=== PATIENT | male | born 1990 | race Caucasian/White ===

== ENCOUNTER 2018-05-16 07:31 | Emergency (ER) | payer SELFPAY ==
[~2018-05-16] VITALS: Ht 180.3 cm; Wt 79.5 kg
[2018-05-16 09:36] LABS: AMPHET/METH SCREEN,URINE NEGATIVE (NEGATIVE); BARBITURATE SCREEN, URINE NEGATIVE (NEGATIVE); BENZODIAZEPINES SCREEN,URINE NEGATIVE (NEGATIVE); CANNABINOID SCREEN,URINE POSITIVE (NEGATIVE); COCAINE SCREEN,URINE NEGATIVE (NEGATIVE); METHADONE SCREEN, URINE NEGATIVE (NEGATIVE); OPIATE SCREEN,URINE NEGATIVE (NEGATIVE)
[2018-05-16 09:41] LABS: PHENCYCLIDINE SCREEN,URINE NEGATIVE (NEGATIVE)
[2018-05-16 10:11] VITALS: BP 123/72
== END 2018-05-16 10:22 | disposition home or self-care (01) ==
LOC: EMS 07:32
DX: F29 Unspecified psychosis not due to a substance or known physiological condition (principal); F12.90 Cannabis use, unspecified, uncomplicated; F17.210 Nicotine dependence, cigarettes, uncomplicated; Z88.0 Allergy status to penicillin; Z88.8 Allergy status to other drugs, medicaments and biological substances
CPT/HCPCS: 99285; 99406

== ENCOUNTER 2019-01-15 22:24 | Inpatient (IN) | payer MEDICAID ==
[~2019-01-15] VITALS: Ht 177.8 cm; Wt 81.2 kg
[2019-01-16 00:57] LABS: BASOPHILS % (AUTO) 0.7 % (0.0-2.0); EOSINOPHILS % (AUTO) 1.1 % (1.0-6.0); HEMATOCRIT 44.1 % (41-53); HEMOGLOBIN 14.6 g/dL (13.5-17.5); LYMPHOCYTES # (AUTO) 2.4 K/uL (1.0-4.8); LYMPHOCYTES % (AUTO) 35.2 % (22.0-44.0); MEAN CORPUSCULAR HEMOGLOBIN 28.8 pg (26.0-34.0); MEAN CORPUSCULAR HGB CONC 33.1 G/dL (31.0-37.0); MEAN CORPUSCULAR VOLUME 87 fL (80-100); MONOCYTES # (AUTO) 0.6 K/uL (0.1-1.0); MONOCYTES % (AUTO) 8.1 % (2.0-9.0); NEUTROPHILS # (AUTO) 3.8 K/uL (1.8-7.7); NEUTROPHILS % (AUTO) 54.9 % (40.0-70.0); PLATELET COUNT (AUTO) 281 K/uL (150-450); RED BLOOD CELL COUNT(AUTO) 5.06 MIL/uL (4.50-5.90)
[2019-01-16 00:59] LABS: ANION GAP 11 mmol/L (8-16); CALCIUM, TOTAL 9.3 mg/dL (8.8-10.5); CARBON DIOXIDE 30 mmol/L (22-29); CHLORIDE 104 mmol/L (98-107); GLOMERULAR FILTR. RATE CALC > 60 mL/min (>60); GLUCOSE,RANDOM 92 mg/dL (70-110); POTASSIUM 3.7 mmol/L (3.5-5.1); SODIUM SERUM 145 mmol/L (136-145); UREA NITROGEN, BLOOD 10 mg/dL (7-18)
[2019-01-16 01:04] LABS: ALANINE AMINOTRANSFERASE 21 U/L (12-78); ALBUMIN 3.7 g/dL (3.4-5.0); ALKALINE PHOSPHATASE 87 U/L (46-116); ASPARTATE AMINOTRANSFERASE 21 U/L (15-37); BILIRUBIN,TOTAL 0.8 mg/dL (0.1-1.0); TOTAL PROTEIN, SERUM 7.4 g/dL (6.4-8.2)
[2019-01-16] MEDS ORDERED: LORazepam 2 MG TABLET PO PRN (02:15)
[2019-01-16] MEDS ORDERED: HALOPERIDOL 5 MG TABLET PO PRN (02:15)
[2019-01-16 05:30] VITALS: BP 122/80
[2019-01-16] MEDS ORDERED: BENZOCAINE/MENTHOL LOZENGE MM PRN (07:30)
[2019-01-16] MEDS ORDERED: BACITRACIN 28.4 GM OINTMENT TP PRN (07:30)
[2019-01-16] MEDS ORDERED: MAG HYDROX/AL HYDROX/SIMETH ES 30 ML SUSPENSION UDCUP PO PRN (07:30)
[2019-01-16] MEDS ORDERED: MAGNESIUM HYDROXIDE SUSPENSION 30 ML UDCUP PO PRN (07:30)
[2019-01-16] MEDS ORDERED: IBUPROFEN 600 MG TABLET PO PRN (07:30)
[2019-01-16] MEDS ORDERED: ACETAMINOPHEN 325 MG TABLET PO PRN (07:30)
[2019-01-16] MEDS ORDERED: PETROLATUM,WHITE 28 GM JELLY TP PRN (07:30)
[2019-01-16] MEDS ORDERED: ALBUTEROL SULFATE HFA 90 MCG/PUFF 8 GM INHALER IH PRN (07:30)
[2019-01-16] MEDS ORDERED: LOPERAMIDE HCL 2 MG CAPSULE PO PRN (07:30)
[2019-01-16] MEDS ORDERED: ONDANSETRON HCL 4 MG TABLET PO PRN (07:30)
[2019-01-16] MEDS ORDERED: CloNIDine HCL 0.1 MG TABLET PO PRN (07:30)
[2019-01-16 08:05] VITALS: BP 120/69
[2019-01-16] MEDS: DOCUSATE SODIUM 100 MG CAPSULE PO SCH (10:27)
[2019-01-16] MEDS: OMEPRAZOLE 20 MG CAPSULE PO SCH (10:28)
[2019-01-16] MEDS: OLANZapine 7.5 MG TABLET PO SCH (21:59)
[2019-01-17 06:36] LABS: CHOL/HDL RATIO 3.2 (4.2-7.3)
[2019-01-17 09:28] VITALS: BP 101/56
[2019-01-17] MEDS: CITALOPRAM HYDROBROMIDE 20 MG TABLET PO SCH (09:28)
[2019-01-17] MEDS: DOCUSATE SODIUM 100 MG CAPSULE PO SCH (09:28)
[2019-01-17] MEDS: DIVALPROEX SODIUM 500 MG DR TABLET PO SCH ×2 (09:28→16:14)
[2019-01-17] MEDS: OMEPRAZOLE 20 MG CAPSULE PO SCH (09:28)
[2019-01-17 16:28] VITALS: BP 120/71
[2019-01-17] MEDS: OLANZapine 7.5 MG TABLET PO SCH (20:28)
[2019-01-18 08:05] VITALS: BP 122/54
[2019-01-18] MEDS: CITALOPRAM HYDROBROMIDE 20 MG TABLET PO SCH (08:06)
[2019-01-18] MEDS: DIVALPROEX SODIUM 500 MG DR TABLET PO SCH ×2 (08:06→16:40)
[2019-01-18] MEDS: OMEPRAZOLE 20 MG CAPSULE PO SCH (08:06)
[2019-01-18] MEDS: DOCUSATE SODIUM 100 MG CAPSULE PO SCH (08:06)
[2019-01-18] MEDS ORDERED: ONDANSETRON HCL 4 MG/2 ML VIAL IM PRN (09:00)
[2019-01-18] MEDS: OLANZapine 7.5 MG TABLET PO SCH (20:30)
[2019-01-19 08:40] VITALS: BP 130/60
[2019-01-19] MEDS: CITALOPRAM HYDROBROMIDE 20 MG TABLET PO SCH (09:13)
[2019-01-19] MEDS: DIVALPROEX SODIUM 500 MG DR TABLET PO SCH ×2 (09:13→16:20)
[2019-01-19] MEDS: DOCUSATE SODIUM 100 MG CAPSULE PO SCH (09:13)
[2019-01-19] MEDS: OMEPRAZOLE 20 MG CAPSULE PO SCH (09:13)
[2019-01-19 16:05] VITALS: BP 118/75
[2019-01-19] MEDS: OLANZapine 7.5 MG TABLET PO SCH (20:26)
[2019-01-20 08:05] VITALS: BP 134/73
[2019-01-20] MEDS: CITALOPRAM HYDROBROMIDE 20 MG TABLET PO SCH ×2 (09:00→12:46)
[2019-01-20] MEDS: DOCUSATE SODIUM 100 MG CAPSULE PO SCH (09:00)
[2019-01-20] MEDS: OMEPRAZOLE 20 MG CAPSULE PO SCH ×2 (09:00→12:46)
[2019-01-20] MEDS: DIVALPROEX SODIUM 500 MG DR TABLET PO SCH ×3 (09:00→16:14)
[2019-01-20 17:24] VITALS: BP 121/77
[2019-01-20] MEDS: ZOLPIDEM TARTRATE 10 MG TABLET PO PRN (20:06)
[2019-01-20] MEDS: OLANZapine 7.5 MG TABLET PO SCH (20:06)
[2019-01-21 08:42] VITALS: BP 136/73
[2019-01-21] MEDS: DOCUSATE SODIUM 100 MG CAPSULE PO SCH (09:24)
[2019-01-21] MEDS: OMEPRAZOLE 20 MG CAPSULE PO SCH (09:24)
[2019-01-21] MEDS: CITALOPRAM HYDROBROMIDE 20 MG TABLET PO SCH (09:24)
[2019-01-21] MEDS: DIVALPROEX SODIUM 500 MG DR TABLET PO SCH ×2 (09:24→16:40)
[2019-01-21 16:46] VITALS: BP 130/69
[2019-01-21] MEDS: OLANZapine 7.5 MG TABLET PO SCH (20:55)
[2019-01-22 08:30] VITALS: BP 147/99
[2019-01-22] MEDS: CITALOPRAM HYDROBROMIDE 20 MG TABLET PO SCH (09:48)
[2019-01-22] MEDS: DOCUSATE SODIUM 100 MG CAPSULE PO SCH (09:48)
[2019-01-22] MEDS: OMEPRAZOLE 20 MG CAPSULE PO SCH (09:49)
[2019-01-22] MEDS: DIVALPROEX SODIUM 500 MG DR TABLET PO SCH ×2 (09:49→16:28)
[2019-01-22 16:00] VITALS: BP 129/70
[2019-01-22] MEDS: OLANZapine 7.5 MG TABLET PO SCH (20:29)
[2019-01-23 08:46] VITALS: BP 123/75
[2019-01-23] MEDS: DOCUSATE SODIUM 100 MG CAPSULE PO SCH (09:00)
[2019-01-23] MEDS: DIVALPROEX SODIUM 500 MG DR TABLET PO SCH ×2 (09:20→16:30)
[2019-01-23] MEDS: OMEPRAZOLE 20 MG CAPSULE PO SCH (09:21)
[2019-01-23] MEDS: CITALOPRAM HYDROBROMIDE 20 MG TABLET PO SCH (09:21)
[2019-01-23 20:15] VITALS: BP 125/78
[2019-01-23] MEDS: OLANZapine 7.5 MG TABLET PO SCH (20:21)
[2019-01-24 08:02] VITALS: BP 118/70
[2019-01-24] MEDS: DOCUSATE SODIUM 100 MG CAPSULE PO SCH (09:00)
[2019-01-24] MEDS: OMEPRAZOLE 20 MG CAPSULE PO SCH (09:29)
[2019-01-24] MEDS: DIVALPROEX SODIUM 500 MG DR TABLET PO SCH ×2 (09:29→16:14)
[2019-01-24] MEDS: CITALOPRAM HYDROBROMIDE 20 MG TABLET PO SCH (09:29)
[2019-01-24 16:00] VITALS: BP 122/63
[2019-01-24] MEDS: OLANZapine 7.5 MG TABLET PO SCH (20:08)
[2019-01-25 08:05] VITALS: BP 101/82
[2019-01-25] MEDS: DOCUSATE SODIUM 100 MG CAPSULE PO SCH (09:10)
[2019-01-25] MEDS: OMEPRAZOLE 20 MG CAPSULE PO SCH (09:11)
[2019-01-25] MEDS: CITALOPRAM HYDROBROMIDE 20 MG TABLET PO SCH (09:11)
[2019-01-25] MEDS: DIVALPROEX SODIUM 500 MG DR TABLET PO SCH ×2 (09:11→16:22)
[2019-01-25 16:04] VITALS: BP 111/65
[2019-01-25] MEDS: ZOLPIDEM TARTRATE 10 MG TABLET PO PRN (20:17)
[2019-01-25] MEDS: OLANZapine 7.5 MG TABLET PO SCH (20:19)
[2019-01-26 08:12] VITALS: BP 105/64
[2019-01-26] MEDS: OMEPRAZOLE 20 MG CAPSULE PO SCH (08:25)
[2019-01-26] MEDS: DOCUSATE SODIUM 100 MG CAPSULE PO SCH (08:25)
[2019-01-26] MEDS: DIVALPROEX SODIUM 500 MG DR TABLET PO SCH ×2 (08:25→16:29)
[2019-01-26] MEDS: CITALOPRAM HYDROBROMIDE 20 MG TABLET PO SCH (08:26)
[2019-01-26 16:20] VITALS: BP 114/67
[2019-01-26] MEDS: OLANZapine 7.5 MG TABLET PO SCH (20:26)
[2019-01-27 08:00] VITALS: BP 113/63
[2019-01-27] MEDS: DIVALPROEX SODIUM 500 MG DR TABLET PO SCH ×2 (08:33→16:23)
[2019-01-27] MEDS: DOCUSATE SODIUM 100 MG CAPSULE PO SCH (08:33)
[2019-01-27] MEDS: OMEPRAZOLE 20 MG CAPSULE PO SCH (08:33)
[2019-01-27] MEDS: CITALOPRAM HYDROBROMIDE 20 MG TABLET PO SCH (08:33)
[2019-01-27 10:28] VITALS: BP 114/57
[2019-01-27 16:00] VITALS: BP 113/63
[2019-01-27] MEDS: OLANZapine 7.5 MG TABLET PO SCH (20:23)
[2019-01-28] MEDS: DOCUSATE SODIUM 100 MG CAPSULE PO SCH (09:20)
[2019-01-28] MEDS: DIVALPROEX SODIUM 500 MG DR TABLET PO SCH ×2 (09:20→17:17)
[2019-01-28] MEDS: CITALOPRAM HYDROBROMIDE 20 MG TABLET PO SCH (09:20)
[2019-01-28] MEDS: OMEPRAZOLE 20 MG CAPSULE PO SCH (09:20)
[2019-01-28 16:15] VITALS: BP 111/57
[2019-01-28] MEDS: OLANZapine 7.5 MG TABLET PO SCH (20:09)
[2019-01-29 08:03] VITALS: BP 124/71
[2019-01-29] MEDS: DIVALPROEX SODIUM 500 MG DR TABLET PO SCH ×2 (08:46→17:31)
[2019-01-29] MEDS: DOCUSATE SODIUM 100 MG CAPSULE PO SCH (08:46)
[2019-01-29] MEDS: OMEPRAZOLE 20 MG CAPSULE PO SCH (08:46)
[2019-01-29] MEDS: CITALOPRAM HYDROBROMIDE 20 MG TABLET PO SCH (08:46)
[2019-01-29 16:36] VITALS: BP 120/70
[2019-01-29] MEDS: OLANZapine 7.5 MG TABLET PO SCH (20:33)
[2019-01-30 08:03] VITALS: BP 120/66
[2019-01-30] MEDS: DOCUSATE SODIUM 100 MG CAPSULE PO SCH (08:24)
[2019-01-30] MEDS: DIVALPROEX SODIUM 500 MG DR TABLET PO SCH ×2 (08:24→16:16)
[2019-01-30] MEDS: CITALOPRAM HYDROBROMIDE 20 MG TABLET PO SCH (08:24)
[2019-01-30] MEDS: OMEPRAZOLE 20 MG CAPSULE PO SCH (08:24)
[2019-01-30 16:08] VITALS: BP 127/67
[2019-01-30] MEDS: OLANZapine 7.5 MG TABLET PO SCH (21:04)
[2019-01-31 08:02] VITALS: BP 120/72
[2019-01-31] MEDS: DOCUSATE SODIUM 100 MG CAPSULE PO SCH (09:20)
[2019-01-31] MEDS: CITALOPRAM HYDROBROMIDE 20 MG TABLET PO SCH (09:20)
[2019-01-31] MEDS: OMEPRAZOLE 20 MG CAPSULE PO SCH (09:20)
[2019-01-31] MEDS: DIVALPROEX SODIUM 500 MG DR TABLET PO SCH ×2 (09:20→17:33)
[2019-01-31 16:23] VITALS: BP 135/78
[2019-01-31] MEDS: OLANZapine 7.5 MG TABLET PO SCH (20:47)
[2019-02-01 08:05] VITALS: BP 131/76
[2019-02-01] MEDS: DIVALPROEX SODIUM 500 MG DR TABLET PO SCH ×2 (08:56→17:12)
[2019-02-01] MEDS: CITALOPRAM HYDROBROMIDE 20 MG TABLET PO SCH (08:56)
[2019-02-01] MEDS: DOCUSATE SODIUM 100 MG CAPSULE PO SCH (08:56)
[2019-02-01] MEDS: OMEPRAZOLE 20 MG CAPSULE PO SCH (08:57)
[2019-02-01 16:25] VITALS: BP 118/64
[2019-02-01] MEDS: OLANZapine 7.5 MG TABLET PO SCH (20:05)
[2019-02-02 02:39] VITALS: BP 133/77
[2019-02-02 08:05] VITALS: BP 109/65
[2019-02-02] MEDS: DOCUSATE SODIUM 100 MG CAPSULE PO SCH (10:27)
[2019-02-02] MEDS: DIVALPROEX SODIUM 500 MG DR TABLET PO SCH ×2 (10:27→16:17)
[2019-02-02] MEDS: CITALOPRAM HYDROBROMIDE 20 MG TABLET PO SCH (10:27)
[2019-02-02] MEDS: OMEPRAZOLE 20 MG CAPSULE PO SCH (10:27)
[2019-02-02 17:14] VITALS: BP 126/73
[2019-02-02] MEDS: OLANZapine 7.5 MG TABLET PO SCH (20:29)
[2019-02-03 03:47] VITALS: BP 131/76
[2019-02-03 08:05] VITALS: BP 135/70
[2019-02-03] MEDS: OMEPRAZOLE 20 MG CAPSULE PO SCH (08:38)
[2019-02-03] MEDS: DIVALPROEX SODIUM 500 MG DR TABLET PO SCH (08:38)
[2019-02-03] MEDS: CITALOPRAM HYDROBROMIDE 20 MG TABLET PO SCH (08:38)
[2019-02-03] MEDS: DOCUSATE SODIUM 100 MG CAPSULE PO SCH (08:38)
[2019-02-03] MEDS ORDERED: DIVA-78 PO (09:43)
[2019-02-03] MEDS ORDERED: CITA-106 PO (09:43)
[2019-02-03] MEDS ORDERED: OLAN7.5T2 PO (09:43)
[2019-02-03] MEDS ORDERED: ESCI20TA PO (13:38)
== END 2019-02-03 10:30 | disposition home or self-care (01) | DRG 750 ==
LOC: EMS 22:25 → 3EI 01-16 05:17
PROVIDERS: ADMIT Psychiatry & Neurology Psychiatry; ATTEND Psychiatry & Neurology Psychiatry
DX: F25.1 Schizoaffective disorder, depressive type (principal); R45.851 Suicidal ideations; Z59.0 Homelessness; F12.90 Cannabis use, unspecified, uncomplicated; K59.00 Constipation, unspecified; G47.00 Insomnia, unspecified; F41.9 Anxiety disorder, unspecified; Z71.51 Drug abuse counseling and surveillance of drug abuser; F17.210 Nicotine dependence, cigarettes, uncomplicated; Z56.0 Unemployment, unspecified; Z88.8 Allergy status to other drugs, medicaments and biological substances; Z88.0 Allergy status to penicillin; Z91.013 Allergy to seafood; Z71.6 Tobacco abuse counseling
CPT/HCPCS: G0480; J2405; Q0162

== ENCOUNTER 2019-03-26 16:06 | Inpatient (IN) | payer MEDICAID ==
[~2019-03-26] VITALS: Ht 180.3 cm; Wt 82.1 kg
[~2019-03-26 16:06] MED LIST: DIVA-78 PO; ESCI20TA PO; OLAN7.5T2 PO
[2019-03-26 18:22] LABS: BASOPHILS % (AUTO) 0.6 % (0.0-2.0); EOSINOPHILS % (AUTO) 0.6 % (1.0-6.0); HEMATOCRIT 45.8 % (41-53); HEMOGLOBIN 14.9 g/dL (13.5-17.5); LYMPHOCYTES # (AUTO) 2.3 K/uL (1.0-4.8); LYMPHOCYTES % (AUTO) 27.6 % (22.0-44.0); MEAN CORPUSCULAR HEMOGLOBIN 29.3 pg (26.0-34.0); MEAN CORPUSCULAR HGB CONC 32.5 G/dL (31.0-37.0); MEAN CORPUSCULAR VOLUME 90 fL (80-100); MONOCYTES # (AUTO) 0.6 K/uL (0.1-1.0); MONOCYTES % (AUTO) 7.2 % (2.0-9.0); NEUTROPHILS # (AUTO) 5.3 K/uL (1.8-7.7); PLATELET COUNT (AUTO) 292 K/uL (150-450); RED BLOOD CELL COUNT(AUTO) 5.09 MIL/uL (4.50-5.90)
[2019-03-26 18:44] LABS: ANION GAP 15 mmol/L (8-16); CALCIUM, TOTAL 9.6 mg/dL (8.8-10.5); CARBON DIOXIDE 23 mmol/L (22-29); CHLORIDE 98 mmol/L (98-107); CREATININE 0.95 mg/dL (0.60-1.30); GLOMERULAR FILTR. RATE CALC > 60 mL/min (>60); GLUCOSE,RANDOM 130 mg/dL (70-110); POTASSIUM 3.7 mmol/L (3.5-5.1); SODIUM SERUM 136 mmol/L (136-145); UREA NITROGEN, BLOOD 11 mg/dL (7-18)
[2019-03-26 18:50] LABS: ALANINE AMINOTRANSFERASE 33 U/L (12-78); ALBUMIN 4.6 g/dL (3.4-5.0); ALKALINE PHOSPHATASE 108 U/L (46-116); ASPARTATE AMINOTRANSFERASE 25 U/L (15-37); BILIRUBIN,TOTAL 1.1 mg/dL (0.1-1.0); TOTAL PROTEIN, SERUM 7.9 g/dL (6.4-8.2)
[2019-03-26 19:37] LABS: AMPHET/METH SCREEN,URINE NEGATIVE (NEGATIVE); BARBITURATE SCREEN, URINE NEGATIVE (NEGATIVE); BENZODIAZEPINES SCREEN,URINE NEGATIVE (NEGATIVE); CANNABINOID SCREEN,URINE POSITIVE (NEGATIVE); COCAINE SCREEN,URINE NEGATIVE (NEGATIVE); METHADONE SCREEN, URINE NEGATIVE (NEGATIVE); OPIATE SCREEN,URINE NEGATIVE (NEGATIVE)
[2019-03-26 19:40] LABS: PHENCYCLIDINE SCREEN,URINE NEGATIVE (NEGATIVE)
[2019-03-27 00:20] VITALS: BP 127/76
[2019-03-27 07:04] LABS: CHOL/HDL RATIO 4.1 (4.2-7.3)
[2019-03-27 09:44] VITALS: BP 124/80
[2019-03-27] MEDS: DIVALPROEX SODIUM 500 MG DR TABLET PO SCH (16:39)
[2019-03-27 18:35] VITALS: BP 107/61
[2019-03-27] MEDS: LORazepam 2 MG TABLET PO PRN (19:35)
[2019-03-27] MEDS: OLANZapine 7.5 MG TABLET PO SCH (21:37)
[2019-03-27] MEDS ORDERED: PETROLATUM,WHITE 28 GM JELLY TP PRN (22:15)
[2019-03-27] MEDS ORDERED: BENZOCAINE/MENTHOL LOZENGE MM PRN (22:15)
[2019-03-27] MEDS ORDERED: BACITRACIN 28.4 GM OINTMENT TP PRN (22:15)
[2019-03-27] MEDS ORDERED: OMEPRAZOLE 20 MG CAPSULE PO PRN (22:15)
[2019-03-27] MEDS ORDERED: ACETAMINOPHEN 325 MG TABLET PO PRN (22:15)
[2019-03-27] MEDS ORDERED: MAGNESIUM HYDROXIDE SUSPENSION 30 ML UDCUP PO PRN (22:15)
[2019-03-27] MEDS ORDERED: DOCUSATE SODIUM 100 MG CAPSULE PO PRN (22:15)
[2019-03-27] MEDS ORDERED: CloNIDine HCL 0.1 MG TABLET PO PRN (22:15)
[2019-03-27] MEDS ORDERED: MAG HYDROX/AL HYDROX/SIMETH ES 30 ML SUSPENSION UDCUP PO PRN (22:15)
[2019-03-27] MEDS ORDERED: IBUPROFEN 600 MG TABLET PO PRN (22:15)
[2019-03-27] MEDS ORDERED: ALBUTEROL SULFATE HFA 90 MCG/PUFF 8 GM INHALER IH PRN (22:15)
[2019-03-27] MEDS ORDERED: ONDANSETRON HCL 4 MG TABLET PO PRN (22:15)
[2019-03-27] MEDS ORDERED: LOPERAMIDE HCL 2 MG CAPSULE PO PRN (22:15)
[2019-03-28 08:11] VITALS: BP 130/78
[2019-03-28] MEDS: DIVALPROEX SODIUM 500 MG DR TABLET PO SCH ×2 (08:44→16:35)
[2019-03-28] MEDS: LORazepam 2 MG TABLET PO PRN (16:35)
[2019-03-28 16:36] VITALS: BP 115/65
[2019-03-28] MEDS: OLANZapine 7.5 MG TABLET PO SCH (20:40)
[2019-03-29 08:25] VITALS: BP 115/78
[2019-03-29] MEDS: DIVALPROEX SODIUM 500 MG DR TABLET PO SCH ×2 (09:16→16:48)
[2019-03-29] MEDS: LORazepam 2 MG TABLET PO PRN (14:21)
[2019-03-29 17:09] VITALS: BP 114/76
[2019-03-29] MEDS: OLANZapine 7.5 MG TABLET PO SCH (20:50)
[2019-03-29] MEDS: ZOLPIDEM TARTRATE 10 MG TABLET PO PRN (21:46)
[2019-03-30 09:10] VITALS: BP 124/67
[2019-03-30] MEDS: DIVALPROEX SODIUM 500 MG DR TABLET PO SCH ×2 (09:25→16:12)
[2019-03-30] MEDS: LORazepam 2 MG TABLET PO PRN (16:12)
[2019-03-30 17:11] VITALS: BP 121/74
[2019-03-30] MEDS: OLANZapine 7.5 MG TABLET PO SCH (21:15)
[2019-03-30] MEDS: ZOLPIDEM TARTRATE 10 MG TABLET PO PRN (21:15)
[2019-03-31] MEDS: DIVALPROEX SODIUM 500 MG DR TABLET PO SCH ×2 (08:55→16:31)
[2019-03-31 09:11] VITALS: BP 111/66
[2019-03-31] MEDS: LORazepam 2 MG TABLET PO PRN (13:16)
[2019-03-31] MEDS: OLANZapine 7.5 MG TABLET PO SCH (20:19)
[2019-03-31] MEDS: ZOLPIDEM TARTRATE 10 MG TABLET PO PRN (20:19)
[2019-04-01] MEDS: DIVALPROEX SODIUM 500 MG DR TABLET PO SCH ×2 (07:59→16:42)
[2019-04-01] MEDS: LORazepam 2 MG TABLET PO PRN ×2 (07:59→18:22)
[2019-04-01 16:20] VITALS: BP 112/69
[2019-04-01] MEDS: OLANZapine 7.5 MG TABLET PO SCH (20:27)
[2019-04-01] MEDS: ZOLPIDEM TARTRATE 10 MG TABLET PO PRN (20:27)
[2019-04-02 08:00] VITALS: BP 120/74
[2019-04-02] MEDS: DIVALPROEX SODIUM 500 MG DR TABLET PO SCH ×2 (08:29→16:19)
[2019-04-02] MEDS: LORazepam 2 MG TABLET PO PRN ×2 (08:29→20:12)
[2019-04-02 16:11] VITALS: BP 110/65
[2019-04-02] MEDS: OLANZapine 7.5 MG TABLET PO SCH (20:14)
[2019-04-02] MEDS: ZOLPIDEM TARTRATE 10 MG TABLET PO PRN (21:30)
[2019-04-02 21:36] VITALS: BP 129/73
[2019-04-03] MEDS: DIVALPROEX SODIUM 500 MG DR TABLET PO SCH ×2 (08:43→16:30)
[2019-04-03] MEDS: LORazepam 2 MG TABLET PO PRN (08:43)
[2019-04-03 09:08] VITALS: BP 132/66
[2019-04-03 16:55] VITALS: BP 118/76
[2019-04-03] MEDS: OLANZapine 7.5 MG TABLET PO SCH (20:26)
[2019-04-03] MEDS: ZOLPIDEM TARTRATE 10 MG TABLET PO PRN (20:27)
[2019-04-04 08:55] VITALS: BP 123/72
[2019-04-04] MEDS: DIVALPROEX SODIUM 500 MG DR TABLET PO SCH (09:27)
== END 2019-04-04 10:20 | disposition home or self-care (01) | DRG 751 ==
LOC: EMS 16:11 → 3EI 22:30 → 3EC 03-27 19:30
PROVIDERS: ADMIT Psychiatry & Neurology Psychiatry; ATTEND Psychiatry & Neurology Psychiatry
DX: F33.2 Major depressive disorder, recurrent severe without psychotic features (principal); R45.851 Suicidal ideations; F12.90 Cannabis use, unspecified, uncomplicated; F41.9 Anxiety disorder, unspecified; G47.00 Insomnia, unspecified; K59.00 Constipation, unspecified; F17.210 Nicotine dependence, cigarettes, uncomplicated; Z88.8 Allergy status to other drugs, medicaments and biological substances; Z91.013 Allergy to seafood; Z79.899 Other long term (current) drug therapy
CPT/HCPCS: 83036; G0480

== ENCOUNTER 2020-02-10 16:50 | Inpatient (IN) | payer MEDICAID, OTHER ==
[~2020-02-10] VITALS: Ht 180.3 cm; Wt 89.6 kg
[~2020-02-10 16:50] MED LIST changes: +DIVA-112 PO; -DIVA-78 PO; -ESCI20TA PO
[2020-02-10 18:22] LABS: BASOPHILS % (AUTO) 0.3 % (0.0-2.0); EOSINOPHILS % (AUTO) 0.2 % (1.0-6.0); HEMATOCRIT 42.9 % (41-53); HEMOGLOBIN 13.9 g/dL (13.5-17.5); LYMPHOCYTES # (AUTO) 1.7 K/uL (1.0-4.8); LYMPHOCYTES % (AUTO) 18.2 % (22.0-44.0); MEAN CORPUSCULAR HEMOGLOBIN 28.7 pg (26.0-34.0); MEAN CORPUSCULAR HGB CONC 32.4 G/dL (31.0-37.0); MEAN CORPUSCULAR VOLUME 88 fL (80-100); MONOCYTES # (AUTO) 0.5 K/uL (0.1-1.0); NEUTROPHILS # (AUTO) 7.3 K/uL (1.8-7.7); NEUTROPHILS % (AUTO) 76.3 % (40.0-70.0); PLATELET COUNT (AUTO) 278 K/uL (150-450); RED BLOOD CELL COUNT(AUTO) 4.86 MIL/uL (4.50-5.90)
[2020-02-10 18:35] LABS: ANION GAP 9 mmol/L (8-16); CARBON DIOXIDE 27 mmol/L (22-29); CHLORIDE 104 mmol/L (98-107); CREATININE 0.85 mg/dL (0.60-1.30); GLOMERULAR FILTR. RATE CALC > 60 mL/min (>60); GLUCOSE,RANDOM 85 mg/dL (70-110); POTASSIUM 3.6 mmol/L (3.5-5.1); SODIUM SERUM 140 mmol/L (136-145); UREA NITROGEN, BLOOD 9 mg/dL (7-18)
[2020-02-10 18:36] LABS: AMPHET/METH SCREEN,URINE NEGATIVE (NEGATIVE); BARBITURATE SCREEN, URINE NEGATIVE (NEGATIVE); BENZODIAZEPINES SCREEN,URINE NEGATIVE (NEGATIVE); CANNABINOID SCREEN,URINE NEGATIVE (NEGATIVE); COCAINE SCREEN,URINE NEGATIVE (NEGATIVE); METHADONE SCREEN, URINE NEGATIVE (NEGATIVE); OPIATE SCREEN,URINE NEGATIVE (NEGATIVE)
[2020-02-10 18:41] LABS: PHENCYCLIDINE SCREEN,URINE NEGATIVE (NEGATIVE)
[2020-02-10 18:42] LABS: ALANINE AMINOTRANSFERASE 23 U/L (12-78); ALBUMIN 4.2 g/dL (3.4-5.0); ALKALINE PHOSPHATASE 88 U/L (46-116); ASPARTATE AMINOTRANSFERASE 15 U/L (15-37); BILIRUBIN,TOTAL 0.4 mg/dL (0.1-1.0); TOTAL PROTEIN, SERUM 7.9 g/dL (6.4-8.2)
[2020-02-10] MEDS ORDERED: LORazepam 1 MG TABLET PO ONE (19:15)
[2020-02-10 20:50] LABS: APPEARANCE,URINE CLEAR (CLEAR); BILIRUBIN,URINE NEGATIVE (NEGATIVE); GLUCOSE, URINE (UA) NEGATIVE (NEGATIVE); KETONES,URINE NEGATIVE (NEGATIVE); LEUKOCYTE ESTERASE ,URINE NEGATIVE (NEGATIVE); NITRATE,URINE NEGATIVE (NEGATIVE); OCCULT BLOOD,URINE NEGATIVE (NEGATIVE); PROTEIN,URINE NEGATIVE (NEGATIVE); UROBILINOGEN,URINE 0.2 mg/dL (<=1.0)
[2020-02-10] MEDS: ZOLPIDEM TARTRATE 10 MG TABLET PO PRN (22:50)
[2020-02-10 23:22] VITALS: BP 116/74
[2020-02-11 07:09] LABS: CHOL/HDL RATIO 3.5 (4.2-7.3)
[2020-02-11 08:00] VITALS: BP 118/73
[2020-02-11] MEDS ORDERED: LOPERAMIDE HCL 2 MG CAPSULE PO PRN (08:15)
[2020-02-11] MEDS ORDERED: PETROLATUM,WHITE 28 GM JELLY TP PRN (08:15)
[2020-02-11] MEDS ORDERED: ALBUTEROL SULFATE HFA 90 MCG/PUFF 8 GM INHALER IH PRN (08:15)
[2020-02-11] MEDS ORDERED: ONDANSETRON HCL 4 MG TABLET PO PRN (08:15)
[2020-02-11] MEDS ORDERED: CloNIDine HCL 0.1 MG TABLET PO PRN (08:15)
[2020-02-11] MEDS ORDERED: GuaiFENesin/D-METHORPHAN [SUGAR-FREE] 200-20MG/10 ML SYRUP UDCUP PO PRN (08:15)
[2020-02-11] MEDS ORDERED: MAGNESIUM HYDROXIDE SUSPENSION 30 ML UDCUP PO PRN (08:15)
[2020-02-11] MEDS ORDERED: DOCUSATE SODIUM 100 MG CAPSULE PO PRN (08:15)
[2020-02-11] MEDS ORDERED: IBUPROFEN 400 MG TABLET PO PRN (08:15)
[2020-02-11] MEDS ORDERED: MAG HYDROX/AL HYDROX/SIMETH ES 30 ML SUSPENSION UDCUP PO PRN (08:15)
[2020-02-11] MEDS ORDERED: NICOTINE 14 MG/24 HOUR PATCH TD PRN (08:15)
[2020-02-11] MEDS ORDERED: ACETAMINOPHEN 325 MG TABLET PO PRN (08:15)
[2020-02-11] MEDS ORDERED: PALI234D IM (10:32)
[2020-02-11] MEDS ORDERED: PALI156D IM (10:32)
[2020-02-11] MEDS: NICOTINE 14 MG/24 HOUR PATCH TD SCH (10:53)
[2020-02-11] MEDS: SERTRALINE HCL 50 MG TABLET PO SCH (10:54)
[2020-02-11] MEDS: DIVALPROEX SODIUM 500 MG DR TABLET PO SCH ×3 (10:57→20:12)
[2020-02-11] MEDS: LORazepam 2 MG TABLET PO PRN (16:07)
[2020-02-11 16:18] VITALS: BP 122/80
[2020-02-11] MEDS: ZOLPIDEM TARTRATE 10 MG TABLET PO PRN (21:21)
[2020-02-12] MEDS: SERTRALINE HCL 50 MG TABLET PO SCH (08:17)
[2020-02-12] MEDS: DIVALPROEX SODIUM 500 MG DR TABLET PO SCH ×3 (08:17→20:29)
[2020-02-12] MEDS: NICOTINE 14 MG/24 HOUR PATCH TD SCH (09:00)
[2020-02-12 09:14] VITALS: BP 125/71
[2020-02-12 16:01] VITALS: BP 120/70
[2020-02-12] MEDS: LORazepam 2 MG TABLET PO PRN ×2 (16:09→20:30)
[2020-02-12] MEDS: ZOLPIDEM TARTRATE 10 MG TABLET PO PRN (22:51)
[2020-02-13 08:00] VITALS: BP 120/80
[2020-02-13] MEDS: DIVALPROEX SODIUM 500 MG DR TABLET PO SCH ×3 (08:56→20:11)
[2020-02-13] MEDS: SERTRALINE HCL 50 MG TABLET PO SCH (08:56)
[2020-02-13] MEDS: NICOTINE 14 MG/24 HOUR PATCH TD SCH (09:00)
[2020-02-13 16:00] VITALS: BP 101/60
[2020-02-13] MEDS: ZOLPIDEM TARTRATE 10 MG TABLET PO PRN (22:11)
[2020-02-14] MEDS: NICOTINE 14 MG/24 HOUR PATCH TD SCH ×2 (09:00→11:14)
[2020-02-14] MEDS: DIVALPROEX SODIUM 500 MG DR TABLET PO SCH ×3 (11:12→20:07)
[2020-02-14] MEDS: SERTRALINE HCL 50 MG TABLET PO SCH (11:12)
[2020-02-14 16:02] VITALS: BP 121/84
[2020-02-14] MEDS: ZOLPIDEM TARTRATE 10 MG TABLET PO PRN (22:27)
[2020-02-15] MEDS: NICOTINE 14 MG/24 HOUR PATCH TD SCH (09:00)
[2020-02-15 10:23] VITALS: BP 109/69
[2020-02-15] MEDS: DIVALPROEX SODIUM 500 MG DR TABLET PO SCH ×3 (10:42→20:17)
[2020-02-15] MEDS: SERTRALINE HCL 100 MG TABLET PO SCH (10:42)
[2020-02-15] MEDS: LORazepam 2 MG TABLET PO PRN (15:48)
[2020-02-15 16:05] VITALS: BP 131/78
[2020-02-15] MEDS: ZOLPIDEM TARTRATE 10 MG TABLET PO PRN (22:05)
[2020-02-16] MEDS: NICOTINE 14 MG/24 HOUR PATCH TD SCH (08:43)
[2020-02-16] MEDS: SERTRALINE HCL 100 MG TABLET PO SCH (08:43)
[2020-02-16] MEDS: DIVALPROEX SODIUM 500 MG DR TABLET PO SCH ×3 (08:43→20:31)
[2020-02-16 09:45] VITALS: BP 111/65
[2020-02-16 17:17] VITALS: BP 95/65
[2020-02-16] MEDS: LORazepam 2 MG TABLET PO PRN (20:31)
[2020-02-16] MEDS: ZOLPIDEM TARTRATE 10 MG TABLET PO PRN (22:07)
[2020-02-17 01:32] VITALS: BP 138/86
[2020-02-17] MEDS: DIVALPROEX SODIUM 500 MG DR TABLET PO SCH ×3 (08:36→20:33)
[2020-02-17] MEDS: SERTRALINE HCL 100 MG TABLET PO SCH (08:36)
[2020-02-17] MEDS: NICOTINE 14 MG/24 HOUR PATCH TD SCH (08:39)
[2020-02-17 08:58] VITALS: BP 121/70
[2020-02-17] MEDS: LORazepam 2 MG TABLET PO PRN (16:22)
[2020-02-17 16:50] VITALS: BP 132/78
[2020-02-17] MEDS: ZOLPIDEM TARTRATE 10 MG TABLET PO PRN (20:35)
[2020-02-18] MEDS: SERTRALINE HCL 100 MG TABLET PO SCH (08:46)
[2020-02-18] MEDS: DIVALPROEX SODIUM 500 MG DR TABLET PO SCH ×3 (08:46→20:03)
[2020-02-18] MEDS: NICOTINE 14 MG/24 HOUR PATCH TD SCH ×2 (08:47→09:00)
[2020-02-18 08:53] VITALS: BP 114/75
[2020-02-18] MEDS: LORazepam 2 MG TABLET PO PRN (11:29)
[2020-02-18] MEDS: RisperiDONE 1 MG TABLET PO SCH ×2 (12:16→20:03)
[2020-02-18 21:56] VITALS: BP 140/80
[2020-02-18] MEDS: ZOLPIDEM TARTRATE 10 MG TABLET PO PRN (21:58)
[2020-02-19] MEDS: DIVALPROEX SODIUM 500 MG DR TABLET PO SCH ×3 (08:49→20:05)
[2020-02-19] MEDS: SERTRALINE HCL 100 MG TABLET PO SCH (08:49)
[2020-02-19] MEDS: RisperiDONE 1 MG TABLET PO SCH ×2 (08:49→20:05)
[2020-02-19] MEDS: NICOTINE 14 MG/24 HOUR PATCH TD SCH (08:50)
[2020-02-19 09:31] VITALS: BP 112/59
[2020-02-19] MEDS: LORazepam 2 MG TABLET PO PRN (15:59)
[2020-02-19 16:30] VITALS: BP 126/79
[2020-02-19] MEDS: ZOLPIDEM TARTRATE 10 MG TABLET PO PRN (20:07)
[2020-02-20 08:00] VITALS: BP 140/91
[2020-02-20] MEDS: SERTRALINE HCL 100 MG TABLET PO SCH (08:18)
[2020-02-20] MEDS: DIVALPROEX SODIUM 500 MG DR TABLET PO SCH ×3 (08:18→20:26)
[2020-02-20] MEDS: LORazepam 2 MG TABLET PO PRN ×2 (08:18→15:43)
[2020-02-20] MEDS: RisperiDONE 1 MG TABLET PO SCH ×2 (08:18→20:26)
[2020-02-20] MEDS: NICOTINE 14 MG/24 HOUR PATCH TD SCH (08:19)
[2020-02-20] MEDS: QUEtiapine FUMARATE 200 MG TABLET PO PRN (15:43)
[2020-02-20 16:17] VITALS: BP 128/76
[2020-02-20] MEDS: ZOLPIDEM TARTRATE 10 MG TABLET PO PRN (21:53)
[2020-02-21 08:00] VITALS: BP 100/55
[2020-02-21] MEDS: DIVALPROEX SODIUM 500 MG DR TABLET PO SCH ×3 (08:05→20:01)
[2020-02-21] MEDS: RisperiDONE 1 MG TABLET PO SCH ×2 (08:05→20:01)
[2020-02-21] MEDS: SERTRALINE HCL 100 MG TABLET PO SCH (08:05)
[2020-02-21] MEDS: NICOTINE 14 MG/24 HOUR PATCH TD SCH (09:00)
[2020-02-21 16:00] VITALS: BP 118/76
[2020-02-21] MEDS: LORazepam 2 MG TABLET PO PRN (16:13)
[2020-02-21] MEDS: QUEtiapine FUMARATE 200 MG TABLET PO PRN (16:14)
[2020-02-22] MEDS: DIVALPROEX SODIUM 500 MG DR TABLET PO SCH ×3 (08:15→20:02)
[2020-02-22] MEDS: RisperiDONE 1 MG TABLET PO SCH ×2 (08:15→20:02)
[2020-02-22] MEDS: SERTRALINE HCL 100 MG TABLET PO SCH (08:15)
[2020-02-22] MEDS: NICOTINE 14 MG/24 HOUR PATCH TD SCH (08:16)
[2020-02-22 09:22] VITALS: BP 103/55
[2020-02-22 14:20] VITALS: BP 124/79
[2020-02-22] MEDS: LORazepam 2 MG TABLET PO PRN ×2 (14:25→19:40)
[2020-02-22] MEDS: QUEtiapine FUMARATE 200 MG TABLET PO PRN ×2 (14:26→19:40)
[2020-02-22 16:00] VITALS: BP 108/58
[2020-02-22 19:40] VITALS: BP 131/84
[2020-02-22] MEDS: ZOLPIDEM TARTRATE 10 MG TABLET PO PRN (20:39)
[2020-02-23] MEDS: RisperiDONE 1 MG TABLET PO SCH ×2 (08:55→20:17)
[2020-02-23] MEDS: DIVALPROEX SODIUM 500 MG DR TABLET PO SCH ×3 (08:55→20:17)
[2020-02-23] MEDS: SERTRALINE HCL 100 MG TABLET PO SCH (08:55)
[2020-02-23 09:00] VITALS: BP 111/65
[2020-02-23] MEDS: NICOTINE 14 MG/24 HOUR PATCH TD SCH (09:00)
[2020-02-23] MEDS ORDERED: SERTRALINE HCL 50 MG TABLET PO ONE (11:00)
[2020-02-23] MEDS: QUEtiapine FUMARATE 200 MG TABLET PO PRN (12:39)
[2020-02-23] MEDS: LORazepam 2 MG TABLET PO PRN ×2 (16:10→22:02)
[2020-02-23 16:52] VITALS: BP 137/76
[2020-02-23] MEDS: ZOLPIDEM TARTRATE 10 MG TABLET PO PRN (20:17)
[2020-02-23] MEDS: QUEtiapine FUMARATE 100 MG TABLET PO PRN (20:25)
[2020-02-24 08:00] VITALS: BP 113/60
[2020-02-24] MEDS: DIVALPROEX SODIUM 500 MG DR TABLET PO SCH ×3 (08:55→20:22)
[2020-02-24] MEDS: RisperiDONE 1 MG TABLET PO SCH ×2 (08:55→20:22)
[2020-02-24] MEDS: SERTRALINE HCL 100 MG TABLET PO SCH (08:55)
[2020-02-24] MEDS: NICOTINE 14 MG/24 HOUR PATCH TD SCH (08:59)
[2020-02-24] MEDS: QUEtiapine FUMARATE 100 MG TABLET PO PRN (16:14)
[2020-02-24 16:29] VITALS: BP 107/74
[2020-02-24] MEDS: ZOLPIDEM TARTRATE 10 MG TABLET PO PRN (22:07)
[2020-02-25] MEDS: DIVALPROEX SODIUM 500 MG DR TABLET PO SCH ×3 (08:49→21:03)
[2020-02-25] MEDS: SERTRALINE HCL 100 MG TABLET PO SCH (08:50)
[2020-02-25] MEDS: RisperiDONE 1 MG TABLET PO SCH (08:50)
[2020-02-25] MEDS: QUEtiapine FUMARATE 100 MG TABLET PO PRN (08:55)
[2020-02-25] MEDS: LORazepam 2 MG TABLET PO PRN ×2 (08:55→16:37)
[2020-02-25] MEDS: NICOTINE 14 MG/24 HOUR PATCH TD SCH (08:55)
[2020-02-25] MEDS ORDERED: RisperiDONE 1 MG TABLET PO ONE (09:30)
[2020-02-25 10:08] VITALS: BP 100/63
[2020-02-25 16:21] VITALS: BP 114/72
[2020-02-25] MEDS: RisperiDONE 2 MG TABLET PO SCH (21:03)
[2020-02-25] MEDS: ZOLPIDEM TARTRATE 10 MG TABLET PO PRN (21:09)
[2020-02-26] MEDS: RisperiDONE 2 MG TABLET PO SCH ×2 (08:53→20:10)
[2020-02-26] MEDS: DIVALPROEX SODIUM 500 MG DR TABLET PO SCH ×3 (08:54→20:10)
[2020-02-26] MEDS: SERTRALINE HCL 100 MG TABLET PO SCH (08:54)
[2020-02-26] MEDS: LORazepam 2 MG TABLET PO PRN ×2 (08:55→16:45)
[2020-02-26] MEDS: NICOTINE 14 MG/24 HOUR PATCH TD SCH ×2 (09:00→09:42)
[2020-02-26 09:20] VITALS: BP 142/96
[2020-02-26 16:40] VITALS: BP 128/80
[2020-02-26] MEDS: QUEtiapine FUMARATE 100 MG TABLET PO PRN (16:45)
[2020-02-26 17:02] VITALS: BP 124/74
[2020-02-26] MEDS: ZOLPIDEM TARTRATE 10 MG TABLET PO PRN (21:32)
[2020-02-27 08:00] VITALS: BP 105/61
[2020-02-27] MEDS: DIVALPROEX SODIUM 500 MG DR TABLET PO SCH ×3 (08:22→20:14)
[2020-02-27] MEDS: SERTRALINE HCL 100 MG TABLET PO SCH (08:22)
[2020-02-27] MEDS: RisperiDONE 2 MG TABLET PO SCH ×2 (08:22→20:14)
[2020-02-27] MEDS: NICOTINE 14 MG/24 HOUR PATCH TD SCH (08:43)
[2020-02-27] MEDS: LORazepam 2 MG TABLET PO PRN ×2 (08:45→16:23)
[2020-02-27] MEDS: QUEtiapine FUMARATE 100 MG TABLET PO PRN ×2 (09:47→16:23)
[2020-02-27 16:00] VITALS: BP 115/69
[2020-02-27] MEDS: ZOLPIDEM TARTRATE 10 MG TABLET PO PRN (22:56)
[2020-02-28 00:25] VITALS: BP 134/2
[2020-02-28] MEDS: LORazepam 2 MG TABLET PO PRN ×3 (00:30→22:08)
[2020-02-28] MEDS: QUEtiapine FUMARATE 100 MG TABLET PO PRN ×2 (00:30→23:37)
[2020-02-28 08:00] VITALS: BP 125/61
[2020-02-28] MEDS: NICOTINE 14 MG/24 HOUR PATCH TD SCH (09:00)
[2020-02-28] MEDS: DIVALPROEX SODIUM 500 MG DR TABLET PO SCH ×3 (09:24→20:33)
[2020-02-28] MEDS: RisperiDONE 2 MG TABLET PO SCH ×2 (09:24→20:33)
[2020-02-28] MEDS: SERTRALINE HCL 100 MG TABLET PO SCH (09:24)
[2020-02-28 16:05] VITALS: BP 120/71
[2020-02-28] MEDS: ZOLPIDEM TARTRATE 10 MG TABLET PO PRN (23:35)
[2020-02-29 00:05] VITALS: BP 127/79
[2020-02-29 08:00] VITALS: BP 118/58
[2020-02-29] MEDS: NICOTINE 14 MG/24 HOUR PATCH TD SCH ×2 (09:00→19:20)
[2020-02-29] MEDS: RisperiDONE 2 MG TABLET PO SCH ×2 (10:08→20:07)
[2020-02-29] MEDS: DIVALPROEX SODIUM 500 MG DR TABLET PO SCH ×3 (10:08→20:07)
[2020-02-29] MEDS: SERTRALINE HCL 100 MG TABLET PO SCH (10:08)
[2020-02-29 17:21] VITALS: BP 124/58
[2020-02-29] MEDS: LORazepam 2 MG TABLET PO PRN (19:14)
[2020-02-29] MEDS: ZOLPIDEM TARTRATE 10 MG TABLET PO PRN (21:14)
[2020-02-29] MEDS: QUEtiapine FUMARATE 100 MG TABLET PO PRN (23:58)
[2020-03-01 08:00] VITALS: BP 124/67
[2020-03-01] MEDS: SERTRALINE HCL 100 MG TABLET PO SCH (08:22)
[2020-03-01] MEDS: DIVALPROEX SODIUM 500 MG DR TABLET PO SCH ×3 (08:22→20:09)
[2020-03-01] MEDS: RisperiDONE 2 MG TABLET PO SCH ×2 (08:23→20:09)
[2020-03-01 16:10] VITALS: BP 118/80
[2020-03-01] MEDS: QUEtiapine FUMARATE 100 MG TABLET PO PRN ×2 (16:16→22:03)
[2020-03-01] MEDS: LORazepam 2 MG TABLET PO PRN (16:16)
[2020-03-01 16:35] VITALS: BP 112/76
[2020-03-01] MEDS: ZOLPIDEM TARTRATE 10 MG TABLET PO PRN (22:03)
[2020-03-02 08:00] VITALS: BP 106/68
[2020-03-02] MEDS: LORazepam 2 MG TABLET PO PRN (08:48)
[2020-03-02] MEDS: SERTRALINE HCL 100 MG TABLET PO SCH (08:48)
[2020-03-02] MEDS: RisperiDONE 2 MG TABLET PO SCH ×2 (08:48→20:30)
[2020-03-02] MEDS: DIVALPROEX SODIUM 500 MG DR TABLET PO SCH ×3 (08:48→20:30)
[2020-03-02] MEDS: NICOTINE 14 MG/24 HOUR PATCH TD SCH (08:49)
[2020-03-02] MEDS: QUEtiapine FUMARATE 100 MG TABLET PO PRN ×2 (16:08→20:31)
[2020-03-02 17:09] VITALS: BP 113/80
[2020-03-02] MEDS: ZOLPIDEM TARTRATE 10 MG TABLET PO PRN (21:39)
[2020-03-03 08:00] VITALS: BP 129/90
[2020-03-03] MEDS: NICOTINE 14 MG/24 HOUR PATCH TD SCH (08:21)
[2020-03-03] MEDS: DIVALPROEX SODIUM 500 MG DR TABLET PO SCH ×3 (08:23→20:12)
[2020-03-03] MEDS: SERTRALINE HCL 100 MG TABLET PO SCH (08:23)
[2020-03-03] MEDS: RisperiDONE 2 MG TABLET PO SCH ×2 (08:23→20:12)
[2020-03-03] MEDS: QUEtiapine FUMARATE 100 MG TABLET PO PRN ×2 (16:17→20:42)
[2020-03-03] MEDS: LORazepam 2 MG TABLET PO PRN ×2 (16:17→20:42)
[2020-03-03 18:57] VITALS: BP 113/68
[2020-03-03] MEDS: ZOLPIDEM TARTRATE 10 MG TABLET PO PRN (20:13)
[2020-03-04 08:00] VITALS: BP 121/60
[2020-03-04] MEDS: NICOTINE 14 MG/24 HOUR PATCH TD SCH (09:00)
[2020-03-04] MEDS ORDERED: PALIPERIDONE PALMITATE 234 MG/1.5 ML SYRINGE IM SCH (09:00)
[2020-03-04] MEDS: SERTRALINE HCL 100 MG TABLET PO SCH (10:56)
[2020-03-04] MEDS: RisperiDONE 2 MG TABLET PO SCH ×2 (10:57→20:17)
[2020-03-04] MEDS: DIVALPROEX SODIUM 500 MG DR TABLET PO SCH ×3 (10:57→20:17)
[2020-03-04] MEDS: QUEtiapine FUMARATE 100 MG TABLET PO PRN (16:11)
[2020-03-04] MEDS: LORazepam 2 MG TABLET PO PRN (16:11)
[2020-03-04 17:05] VITALS: BP 111/72
[2020-03-04] MEDS: ZOLPIDEM TARTRATE 10 MG TABLET PO PRN (20:21)
[2020-03-05 08:00] VITALS: BP 114/59
[2020-03-05] MEDS: NICOTINE 14 MG/24 HOUR PATCH TD SCH (09:00)
[2020-03-05] MEDS: DIVALPROEX SODIUM 500 MG DR TABLET PO SCH (10:13)
[2020-03-05] MEDS: SERTRALINE HCL 100 MG TABLET PO SCH (10:13)
[2020-03-05] MEDS: RisperiDONE 2 MG TABLET PO SCH (10:13)
[2020-03-05] MEDS ORDERED: DIVA-112 PO (13:15)
[2020-03-05] MEDS ORDERED: RISP2TAB23 PO (13:16)
[2020-03-05] MEDS ORDERED: SERT100T12 PO (13:17)
== END 2020-03-05 15:04 | disposition home or self-care (01) | DRG 885 ==
LOC: EMS 16:50 → 3EI 20:00
DX: F25.1 Schizoaffective disorder, depressive type (principal); R45.851 Suicidal ideations; Z91.5 Personal history of self-harm; F31.9 Bipolar disorder, unspecified; F17.200 Nicotine dependence, unspecified, uncomplicated; G44.209 Tension-type headache, unspecified, not intractable; F10.10 Alcohol abuse, uncomplicated; F19.10 Other psychoactive substance abuse, uncomplicated; Y90.9 Presence of alcohol in blood, level not specified; F15.90 Other stimulant use, unspecified, uncomplicated; Z88.0 Allergy status to penicillin; Z88.8 Allergy status to other drugs, medicaments and biological substances; R41.843 Psychomotor deficit; Z59.0 Homelessness; R10.13 Epigastric pain; K59.00 Constipation, unspecified; Z79.899 Other long term (current) drug therapy
CPT/HCPCS: G0480

== ENCOUNTER 2020-03-07 00:04 | Inpatient (IN) | payer MEDICAID, OTHER ==
[~2020-03-07] VITALS: Ht 175.3 cm; Wt 96.7 kg
[~2020-03-07 00:04] MED LIST changes: -OLAN7.5T2 PO; +PALI234D IM; +RISP2TAB23 PO; +SERT100T12 PO
[2020-03-07 01:29] LABS: BASOPHILS % (AUTO) 0.9 % (0.0-2.0); EOSINOPHILS % (AUTO) 3.9 % (1.0-6.0); HEMATOCRIT 39.2 % (41-53); HEMOGLOBIN 13.2 g/dL (13.5-17.5); LYMPHOCYTES % (AUTO) 22.8 % (22.0-44.0); MEAN CORPUSCULAR HEMOGLOBIN 29.6 pg (26.0-34.0); MEAN CORPUSCULAR HGB CONC 33.8 G/dL (31.0-37.0); MEAN CORPUSCULAR VOLUME 88 fL (80-100); MONOCYTES % (AUTO) 11.5 % (2.0-9.0); NEUTROPHILS # (AUTO) 5.3 K/uL (1.8-7.7); NEUTROPHILS % (AUTO) 60.9 % (40.0-70.0); PLATELET COUNT (AUTO) 250 K/uL (150-450); RED BLOOD CELL COUNT(AUTO) 4.48 MIL/uL (4.50-5.90); RED CELL DISTRIBUTION WIDTH 13.9 % (11.5-14.5)
[2020-03-07 01:45] LABS: ANION GAP 5 mmol/L (8-16); CALCIUM, TOTAL 8.6 mg/dL (8.8-10.5); CARBON DIOXIDE 29 mmol/L (22-29); CHLORIDE 100 mmol/L (98-107); CREATININE 1.01 mg/dL (0.60-1.30); GLOMERULAR FILTR. RATE CALC > 60 mL/min (>60); GLUCOSE,RANDOM 95 mg/dL (70-110); POTASSIUM 3.5 mmol/L (3.5-5.1); SODIUM SERUM 134 mmol/L (136-145); UREA NITROGEN, BLOOD 13 mg/dL (7-18)
[2020-03-07 01:51] LABS: ALANINE AMINOTRANSFERASE 50 U/L (12-78); ALBUMIN 3.8 g/dL (3.4-5.0); ALKALINE PHOSPHATASE 83 U/L (46-116); ASPARTATE AMINOTRANSFERASE 23 U/L (15-37); BILIRUBIN,TOTAL 0.3 mg/dL (0.1-1.0); TOTAL PROTEIN, SERUM 7.7 g/dL (6.4-8.2)
[2020-03-07 03:02] LABS: AMPHET/METH SCREEN,URINE NEGATIVE (NEGATIVE); BARBITURATE SCREEN, URINE NEGATIVE (NEGATIVE); BENZODIAZEPINES SCREEN,URINE NEGATIVE (NEGATIVE); CANNABINOID SCREEN,URINE NEGATIVE (NEGATIVE); COCAINE SCREEN,URINE NEGATIVE (NEGATIVE); METHADONE SCREEN, URINE NEGATIVE (NEGATIVE); OPIATE SCREEN,URINE NEGATIVE (NEGATIVE)
[2020-03-07 03:08] LABS: PHENCYCLIDINE SCREEN,URINE NEGATIVE (NEGATIVE)
[2020-03-07 04:22] VITALS: BP 144/87
[2020-03-07 08:00] VITALS: BP 130/48
[2020-03-07] MEDS ORDERED: MAG HYDROX/AL HYDROX/SIMETH ES 30 ML SUSPENSION UDCUP PO PRN (09:00)
[2020-03-07] MEDS ORDERED: PETROLATUM,WHITE 28 GM JELLY TP PRN (09:00)
[2020-03-07] MEDS ORDERED: IBUPROFEN 400 MG TABLET PO PRN (09:00)
[2020-03-07] MEDS ORDERED: DOCUSATE SODIUM 100 MG CAPSULE PO PRN (09:00)
[2020-03-07] MEDS ORDERED: MAGNESIUM HYDROXIDE SUSPENSION 30 ML UDCUP PO PRN (09:00)
[2020-03-07] MEDS ORDERED: GuaiFENesin/D-METHORPHAN [SUGAR-FREE] 200-20MG/10 ML SYRUP UDCUP PO PRN (09:00)
[2020-03-07] MEDS ORDERED: ONDANSETRON HCL 4 MG TABLET PO PRN (09:00)
[2020-03-07] MEDS ORDERED: NICOTINE 14 MG/24 HOUR PATCH TD PRN (09:00)
[2020-03-07] MEDS ORDERED: ALBUTEROL SULFATE HFA 90 MCG/PUFF 8 GM INHALER IH PRN (09:00)
[2020-03-07] MEDS ORDERED: LOPERAMIDE HCL 2 MG CAPSULE PO PRN (09:00)
[2020-03-07] MEDS ORDERED: CloNIDine HCL 0.1 MG TABLET PO PRN (09:00)
[2020-03-07] MEDS: ACETAMINOPHEN 325 MG TABLET PO PRN ×2 (12:58→23:44)
[2020-03-07 16:00] VITALS: BP 119/70
[2020-03-07] MEDS: DIVALPROEX SODIUM 500 MG DR TABLET PO SCH ×2 (16:16→20:27)
[2020-03-07] MEDS: RisperiDONE 2 MG TABLET PO SCH (20:26)
[2020-03-07] MEDS: ZOLPIDEM TARTRATE 10 MG TABLET PO PRN (20:29)
[2020-03-07 23:44] VITALS: BP 129/84
[2020-03-08 06:27] LABS: CHOL/HDL RATIO 7.8 (4.2-7.3)
[2020-03-08] MEDS: DIVALPROEX SODIUM 500 MG DR TABLET PO SCH ×3 (09:57→20:48)
[2020-03-08] MEDS: SERTRALINE HCL 100 MG TABLET PO SCH (09:57)
[2020-03-08] MEDS: RisperiDONE 2 MG TABLET PO SCH ×2 (09:57→20:48)
[2020-03-08 10:51] VITALS: BP 110/67
[2020-03-08 16:51] VITALS: BP 142/74
[2020-03-08] MEDS: ZOLPIDEM TARTRATE 10 MG TABLET PO PRN (21:06)
[2020-03-09 08:00] VITALS: BP 120/80
[2020-03-09] MEDS: SERTRALINE HCL 100 MG TABLET PO SCH (09:13)
[2020-03-09] MEDS: RisperiDONE 2 MG TABLET PO SCH ×2 (09:14→20:26)
[2020-03-09] MEDS: DIVALPROEX SODIUM 500 MG DR TABLET PO SCH ×3 (09:14→20:26)
[2020-03-09 16:00] VITALS: BP 142/84
[2020-03-09] MEDS: LORazepam 2 MG TABLET PO PRN ×2 (16:40→23:21)
[2020-03-09] MEDS: ZOLPIDEM TARTRATE 10 MG TABLET PO PRN (21:04)
[2020-03-10 08:40] VITALS: BP 124/80
[2020-03-10] MEDS: RisperiDONE 2 MG TABLET PO SCH ×2 (10:18→20:10)
[2020-03-10] MEDS: SERTRALINE HCL 100 MG TABLET PO SCH (10:18)
[2020-03-10] MEDS: DIVALPROEX SODIUM 500 MG DR TABLET PO SCH ×3 (10:18→20:10)
[2020-03-10] MEDS: LORazepam 2 MG TABLET PO PRN (16:34)
[2020-03-10 17:30] VITALS: BP 116/56
[2020-03-10] MEDS: ZOLPIDEM TARTRATE 10 MG TABLET PO PRN (20:13)
[2020-03-11 08:00] VITALS: BP 116/76
[2020-03-11] MEDS: DIVALPROEX SODIUM 500 MG DR TABLET PO SCH ×3 (08:31→20:23)
[2020-03-11] MEDS: SERTRALINE HCL 100 MG TABLET PO SCH (08:31)
[2020-03-11] MEDS: RisperiDONE 2 MG TABLET PO SCH ×2 (08:31→20:23)
[2020-03-11] MEDS: LORazepam 2 MG TABLET PO PRN (16:41)
[2020-03-11 17:09] VITALS: BP 124/77
[2020-03-11] MEDS: ZOLPIDEM TARTRATE 10 MG TABLET PO PRN (22:29)
[2020-03-12 08:00] VITALS: BP 107/54
[2020-03-12] MEDS: SERTRALINE HCL 100 MG TABLET PO SCH (09:42)
[2020-03-12] MEDS: DIVALPROEX SODIUM 500 MG DR TABLET PO SCH ×3 (09:42→20:32)
[2020-03-12] MEDS: RisperiDONE 2 MG TABLET PO SCH ×2 (09:42→20:32)
[2020-03-12 12:55] VITALS: BP 120/70
[2020-03-12] MEDS: HydrOXYzine PAMOATE 50 MG CAPSULE PO PRN ×2 (12:57→21:33)
[2020-03-12 16:34] VITALS: BP 137/87
[2020-03-12] MEDS: ZOLPIDEM TARTRATE 10 MG TABLET PO PRN (21:04)
[2020-03-13 09:57] VITALS: BP 97/55
[2020-03-13] MEDS: HydrOXYzine PAMOATE 50 MG CAPSULE PO PRN (10:16)
[2020-03-13] MEDS: SERTRALINE HCL 100 MG TABLET PO SCH (10:16)
[2020-03-13] MEDS: DIVALPROEX SODIUM 500 MG DR TABLET PO SCH ×3 (10:16→20:11)
[2020-03-13] MEDS: RisperiDONE 2 MG TABLET PO SCH ×2 (10:16→20:11)
[2020-03-13 12:42] VITALS: BP 97/55
[2020-03-13 16:00] VITALS: BP 112/74
[2020-03-13] MEDS: ZOLPIDEM TARTRATE 10 MG TABLET PO PRN (22:33)
[2020-03-14] MEDS: DIVALPROEX SODIUM 500 MG DR TABLET PO SCH ×3 (09:32→20:20)
[2020-03-14] MEDS: HydrOXYzine PAMOATE 50 MG CAPSULE PO PRN (09:33)
[2020-03-14] MEDS: RisperiDONE 2 MG TABLET PO SCH ×2 (09:33→20:20)
[2020-03-14] MEDS: SERTRALINE HCL 100 MG TABLET PO SCH (09:33)
[2020-03-14 09:34] VITALS: BP 136/95
[2020-03-14 16:37] VITALS: BP 115/76
[2020-03-14] MEDS: ZOLPIDEM TARTRATE 10 MG TABLET PO PRN (20:23)
[2020-03-15 08:00] VITALS: BP 102/56
[2020-03-15] MEDS: DIVALPROEX SODIUM 500 MG DR TABLET PO SCH ×3 (09:04→20:35)
[2020-03-15] MEDS: RisperiDONE 2 MG TABLET PO SCH ×2 (09:04→20:35)
[2020-03-15] MEDS: SERTRALINE HCL 100 MG TABLET PO SCH (09:05)
[2020-03-15 16:00] VITALS: BP 112/73
[2020-03-15 16:35] VITALS: BP 112/73
[2020-03-15] MEDS: ZOLPIDEM TARTRATE 10 MG TABLET PO PRN (20:37)
[2020-03-15] MEDS: HydrOXYzine PAMOATE 50 MG CAPSULE PO PRN (20:37)
[2020-03-16 09:18] VITALS: BP 101/54
[2020-03-16] MEDS: SERTRALINE HCL 100 MG TABLET PO SCH (10:51)
[2020-03-16] MEDS: DIVALPROEX SODIUM 500 MG DR TABLET PO SCH ×3 (10:51→20:17)
[2020-03-16] MEDS: RisperiDONE 2 MG TABLET PO SCH ×2 (10:51→20:17)
[2020-03-16 16:56] VITALS: BP 95/53
[2020-03-16] MEDS: ZOLPIDEM TARTRATE 10 MG TABLET PO PRN (20:18)
[2020-03-16] MEDS: HydrOXYzine PAMOATE 50 MG CAPSULE PO PRN (22:42)
[2020-03-17 08:27] VITALS: BP 126/76
[2020-03-17] MEDS: RisperiDONE 2 MG TABLET PO SCH ×2 (09:41→20:45)
[2020-03-17] MEDS: DIVALPROEX SODIUM 500 MG DR TABLET PO SCH ×3 (09:41→20:45)
[2020-03-17] MEDS: SERTRALINE HCL 100 MG TABLET PO SCH (09:42)
[2020-03-17 16:47] VITALS: BP 121/76
[2020-03-17] MEDS: HydrOXYzine PAMOATE 50 MG CAPSULE PO PRN (17:09)
[2020-03-17] MEDS: ZOLPIDEM TARTRATE 10 MG TABLET PO PRN (20:45)
[2020-03-18 07:14] VITALS: BP 119/70
[2020-03-18 08:00] VITALS: BP 115/77
[2020-03-18] MEDS: RisperiDONE 2 MG TABLET PO SCH ×2 (10:16→19:59)
[2020-03-18] MEDS: DIVALPROEX SODIUM 500 MG DR TABLET PO SCH ×3 (10:16→19:59)
[2020-03-18] MEDS: SERTRALINE HCL 100 MG TABLET PO SCH (10:16)
[2020-03-18] MEDS: HydrOXYzine PAMOATE 50 MG CAPSULE PO PRN (16:18)
[2020-03-18 16:57] VITALS: BP 137/74
[2020-03-18] MEDS: ZOLPIDEM TARTRATE 10 MG TABLET PO PRN (21:24)
[2020-03-19 09:39] VITALS: BP 97/57
[2020-03-19] MEDS: RisperiDONE 2 MG TABLET PO SCH (10:56)
[2020-03-19] MEDS: SERTRALINE HCL 100 MG TABLET PO SCH (10:56)
[2020-03-19] MEDS: DIVALPROEX SODIUM 500 MG DR TABLET PO SCH ×3 (10:56→21:03)
[2020-03-19] MEDS ORDERED: TraZODone HCL 50 MG TABLET PO PRN (15:45)
[2020-03-19 16:47] VITALS: BP 116/70
[2020-03-20 00:33] VITALS: BP 129/71
[2020-03-20 09:09] VITALS: BP 110/58
[2020-03-20] MEDS: DIVALPROEX SODIUM 500 MG DR TABLET PO SCH ×3 (10:06→20:10)
[2020-03-20] MEDS: SERTRALINE HCL 100 MG TABLET PO SCH (10:06)
[2020-03-20] MEDS: PALIPERIDONE 6 MG ER TABLET PO SCH (10:07)
[2020-03-20 16:28] VITALS: BP 118/75
[2020-03-20] MEDS: ZOLPIDEM TARTRATE 10 MG TABLET PO PRN (21:59)
[2020-03-21 08:00] VITALS: BP 123/72
[2020-03-21] MEDS: DIVALPROEX SODIUM 500 MG DR TABLET PO SCH ×3 (08:05→20:06)
[2020-03-21] MEDS: SERTRALINE HCL 100 MG TABLET PO SCH (08:05)
[2020-03-21] MEDS: PALIPERIDONE 6 MG ER TABLET PO SCH (08:05)
[2020-03-21 16:31] VITALS: BP 134/79
[2020-03-21] MEDS: ZOLPIDEM TARTRATE 10 MG TABLET PO PRN (21:56)
[2020-03-22 00:32] VITALS: BP 152/95
[2020-03-22 08:25] VITALS: BP 108/53
[2020-03-22] MEDS: DIVALPROEX SODIUM 500 MG DR TABLET PO SCH ×3 (10:12→20:14)
[2020-03-22] MEDS: PALIPERIDONE 6 MG ER TABLET PO SCH (10:12)
[2020-03-22] MEDS: SERTRALINE HCL 100 MG TABLET PO SCH (10:12)
[2020-03-22 16:18] VITALS: BP 119/74
[2020-03-22] MEDS: ZOLPIDEM TARTRATE 10 MG TABLET PO PRN (23:04)
[2020-03-23 01:15] VITALS: BP 136/64
[2020-03-23 08:00] VITALS: BP 114/69
[2020-03-23] MEDS: DIVALPROEX SODIUM 500 MG DR TABLET PO SCH ×3 (09:41→20:05)
[2020-03-23] MEDS: PALIPERIDONE 6 MG ER TABLET PO SCH (09:41)
[2020-03-23] MEDS: SERTRALINE HCL 100 MG TABLET PO SCH (09:41)
[2020-03-23 16:11] VITALS: BP 131/72
[2020-03-23] MEDS: HydrOXYzine PAMOATE 50 MG CAPSULE PO PRN (16:18)
[2020-03-23] MEDS: ZOLPIDEM TARTRATE 10 MG TABLET PO PRN (23:04)
[2020-03-24 09:00] VITALS: BP 94/61
[2020-03-24] MEDS: DIVALPROEX SODIUM 500 MG DR TABLET PO SCH ×3 (09:01→20:43)
[2020-03-24] MEDS: PALIPERIDONE 6 MG ER TABLET PO SCH (09:01)
[2020-03-24] MEDS: SERTRALINE HCL 100 MG TABLET PO SCH (09:01)
[2020-03-24 16:19] VITALS: BP 104/54
[2020-03-24] MEDS: ZOLPIDEM TARTRATE 10 MG TABLET PO PRN (23:02)
[2020-03-25 08:00] VITALS: BP 122/77
[2020-03-25] MEDS: SERTRALINE HCL 100 MG TABLET PO SCH (09:35)
[2020-03-25] MEDS: PALIPERIDONE 6 MG ER TABLET PO SCH (09:35)
[2020-03-25] MEDS: DIVALPROEX SODIUM 500 MG DR TABLET PO SCH ×3 (09:35→20:07)
[2020-03-25 16:49] VITALS: BP 125/72
[2020-03-25] MEDS: ZOLPIDEM TARTRATE 10 MG TABLET PO PRN (23:53)
[2020-03-26] VITALS: BP 140/81
[2020-03-26 08:00] VITALS: BP 109/66
[2020-03-26] MEDS: PALIPERIDONE 6 MG ER TABLET PO SCH (10:53)
[2020-03-26] MEDS: SERTRALINE HCL 100 MG TABLET PO SCH (10:53)
[2020-03-26] MEDS: DIVALPROEX SODIUM 500 MG DR TABLET PO SCH ×3 (10:53→20:18)
[2020-03-26 17:00] VITALS: BP 115/67
[2020-03-26] MEDS: ZOLPIDEM TARTRATE 10 MG TABLET PO PRN (22:58)
[2020-03-27 00:45] VITALS: BP 131/81
[2020-03-27 08:59] VITALS: BP 105/59
[2020-03-27] MEDS: SERTRALINE HCL 100 MG TABLET PO SCH (10:25)
[2020-03-27] MEDS: DIVALPROEX SODIUM 500 MG DR TABLET PO SCH ×3 (10:25→20:11)
[2020-03-27] MEDS: PALIPERIDONE 6 MG ER TABLET PO SCH (10:25)
[2020-03-27 16:00] VITALS: BP 124/68
[2020-03-27] MEDS: ZOLPIDEM TARTRATE 10 MG TABLET PO PRN (21:53)
[2020-03-28 08:00] VITALS: BP 111/73
[2020-03-28] MEDS: DIVALPROEX SODIUM 500 MG DR TABLET PO SCH ×3 (10:52→20:21)
[2020-03-28] MEDS: PALIPERIDONE 6 MG ER TABLET PO SCH (10:52)
[2020-03-28] MEDS: SERTRALINE HCL 100 MG TABLET PO SCH (10:52)
[2020-03-28 16:00] VITALS: BP 144/75
[2020-03-28] MEDS: ZOLPIDEM TARTRATE 10 MG TABLET PO PRN (22:58)
[2020-03-29] MEDS: PALIPERIDONE 6 MG ER TABLET PO SCH (09:00)
[2020-03-29 09:27] VITALS: BP 105/59
[2020-03-29] MEDS: DIVALPROEX SODIUM 500 MG DR TABLET PO SCH (09:39)
[2020-03-29] MEDS: SERTRALINE HCL 100 MG TABLET PO SCH (09:40)
[2020-03-29 11:10] LABS: GLUCOMETER DEV NAME(LOC) 3E.I 2; GLUCOSE,POINT OF CARE 207 MG/DL (70-110)
[2020-04-01] MEDS ORDERED: PALIPERIDONE PALMITATE 234 MG/1.5 ML SYRINGE IM SCH (09:00)
== END 2020-03-29 16:00 | disposition home or self-care (01) | DRG 885 ==
LOC: EMS 00:06 → 3EI 01:53
DX: F25.1 Schizoaffective disorder, depressive type (principal); E87.1 Hypo-osmolality and hyponatremia; R45.851 Suicidal ideations; D64.9 Anemia, unspecified; F10.10 Alcohol abuse, uncomplicated; F17.210 Nicotine dependence, cigarettes, uncomplicated; F32.9 Major depressive disorder, single episode, unspecified; F41.9 Anxiety disorder, unspecified; Z59.0 Homelessness; Z79.899 Other long term (current) drug therapy; Z88.0 Allergy status to penicillin; Z88.8 Allergy status to other drugs, medicaments and biological substances; Z91.018 Allergy to other foods
CPT/HCPCS: 87081; G0480

== ENCOUNTER 2020-10-23 15:51 | Inpatient (IN) | payer MEDICAID, OTHER ==
[~2020-10-23] VITALS: Ht 180.3 cm; Wt 79.5 kg
[2020-10-23 16:22] LABS: BASOPHILS % (AUTO) 0.4 % (0.0-2.0); EOSINOPHILS % (AUTO) 0.4 % (1.0-6.0); HEMOGLOBIN 15.1 g/dL (13.5-17.5); LYMPHOCYTES # (AUTO) 2.3 K/uL (1.0-4.8); LYMPHOCYTES % (AUTO) 17.2 % (22.0-44.0); MEAN CORPUSCULAR HEMOGLOBIN 29.2 pg (26.0-34.0); MEAN CORPUSCULAR HGB CONC 33.4 G/dL (31.0-37.0); MEAN CORPUSCULAR VOLUME 87 fL (80-100); MONOCYTES # (AUTO) 0.9 K/uL (0.1-1.0); MONOCYTES % (AUTO) 7.1 % (2.0-9.0); NEUTROPHILS % (AUTO) 74.9 % (40.0-70.0); PLATELET COUNT (AUTO) 360 K/uL (150-450); RED BLOOD CELL COUNT(AUTO) 5.16 MIL/uL (4.50-5.90)
[2020-10-23 16:26] LABS: COVID AG,FIA SOURCE NASOPHARYNGEAL
[2020-10-23 16:32] LABS: ANION GAP 16 mmol/L (8-16); CALCIUM, TOTAL 9.8 mg/dL (8.8-10.5); CARBON DIOXIDE 23 mmol/L (22-29); CHLORIDE 99 mmol/L (98-107); CREATININE 0.88 mg/dL (0.60-1.30); GLOMERULAR FILTR. RATE CALC > 60 mL/min (>60); GLUCOSE,RANDOM 96 mg/dL (70-110); POTASSIUM 3.8 mmol/L (3.5-5.1); SODIUM SERUM 138 mmol/L (136-145); UREA NITROGEN, BLOOD 15 mg/dL (7-18)
[2020-10-23 16:40] LABS: ALANINE AMINOTRANSFERASE 45 U/L (12-78); ALBUMIN 4.7 g/dL (3.4-5.0); ALKALINE PHOSPHATASE 100 U/L (46-116); ASPARTATE AMINOTRANSFERASE 28 U/L (15-37); BILIRUBIN,TOTAL 0.4 mg/dL (0.1-1.0); TOTAL PROTEIN, SERUM 8.8 g/dL (6.4-8.2)
[2020-10-23] MEDS ORDERED: PROMETHAZINE HCL 25 MG TABLET PO ONE (17:30)
[2020-10-23] MEDS ORDERED: LORazepam 1 MG TABLET PO ONE (17:30)
[2020-10-23] MEDS ORDERED: QUEtiapine FUMARATE 100 MG TABLET PO ONE (17:30)
[2020-10-23] MEDS ORDERED: HALOPERIDOL 5 MG TABLET PO PRN (18:15)
[2020-10-23] MEDS ORDERED: ONDANSETRON HCL 4 MG/2 ML VIAL IM ONE (18:15)
[2020-10-23 22:23] VITALS: BP 136/75
[2020-10-23] MEDS ORDERED: INFLUENZA VIRUS VACCINE QVS 2020-21 (6MO+)/PF 60 MCG/0.5 ML SYRINGE IM ONE (22:45)
[2020-10-24 00:41] VITALS: BP 138/77
[2020-10-24] MEDS: LORazepam 2 MG TABLET PO PRN ×2 (05:20→13:09)
[2020-10-24] MEDS ORDERED: MAGNESIUM HYDROXIDE SUSPENSION 30 ML UDCUP PO PRN (07:45)
[2020-10-24] MEDS ORDERED: MAG HYDROX/AL HYDROX/SIMETH ES 30 ML SUSPENSION UDCUP PO PRN (07:45)
[2020-10-24] MEDS ORDERED: IBUPROFEN 400 MG TABLET PO PRN (07:45)
[2020-10-24] MEDS ORDERED: ONDANSETRON HCL 4 MG TABLET PO PRN (07:45)
[2020-10-24] MEDS ORDERED: LOPERAMIDE HCL 2 MG CAPSULE PO PRN (07:45)
[2020-10-24] MEDS ORDERED: DOCUSATE SODIUM 100 MG CAPSULE PO PRN (07:45)
[2020-10-24] MEDS ORDERED: ALBUTEROL SULFATE HFA 90 MCG/PUFF 8 GM INHALER IH PRN (07:45)
[2020-10-24] MEDS ORDERED: CloNIDine HCL 0.1 MG TABLET PO PRN (07:45)
[2020-10-24] MEDS ORDERED: PETROLATUM,WHITE 28 GM JELLY TP PRN (07:45)
[2020-10-24] MEDS ORDERED: GuaiFENesin/D-METHORPHAN [SUGAR-FREE] 200-20MG/10 ML SYRUP UDCUP PO PRN (07:45)
[2020-10-24] MEDS ORDERED: ACETAMINOPHEN 325 MG TABLET PO PRN (07:45)
[2020-10-24 08:19] VITALS: BP 119/73
[2020-10-24] MEDS ORDERED: BuPROPion HCL XL 150 MG ER TABLET PO SCH (12:45)
[2020-10-24] MEDS: BuPROPion HCL XL 150 MG ER TABLET PO SCH (13:09)
[2020-10-24] MEDS: DIVALPROEX SODIUM 500 MG DR TABLET PO SCH (16:07)
[2020-10-24 16:17] VITALS: BP 134/87
[2020-10-24] MEDS: ZOLPIDEM TARTRATE 10 MG TABLET PO PRN (20:34)
[2020-10-25 06:08] VITALS: BP 110/75
[2020-10-25 07:50] LABS: BASOPHILS % (AUTO) 0.6 % (0.0-2.0); EOSINOPHILS % (AUTO) 1.3 % (1.0-6.0); HEMATOCRIT 42.7 % (41-53); HEMOGLOBIN 14.2 g/dL (13.5-17.5); LYMPHOCYTES # (AUTO) 2.7 K/uL (1.0-4.8); LYMPHOCYTES % (AUTO) 34.7 % (22.0-44.0); MEAN CORPUSCULAR HEMOGLOBIN 29.3 pg (26.0-34.0); MEAN CORPUSCULAR HGB CONC 33.3 G/dL (31.0-37.0); MEAN CORPUSCULAR VOLUME 88 fL (80-100); MONOCYTES # (AUTO) 0.6 K/uL (0.1-1.0); MONOCYTES % (AUTO) 8.3 % (2.0-9.0); NEUTROPHILS # (AUTO) 4.3 K/uL (1.8-7.7); NEUTROPHILS % (AUTO) 55.1 % (40.0-70.0); PLATELET COUNT (AUTO) 303 K/uL (150-450); RED BLOOD CELL COUNT(AUTO) 4.85 MIL/uL (4.50-5.90); RED CELL DISTRIBUTION WIDTH 13.2 % (11.5-14.5)
[2020-10-25 08:57] VITALS: BP 142/90
[2020-10-25] MEDS: DIVALPROEX SODIUM 500 MG DR TABLET PO SCH ×2 (10:14→17:00)
[2020-10-25] MEDS: BuPROPion HCL XL 150 MG ER TABLET PO SCH (10:14)
[2020-10-25] MEDS: LORazepam 2 MG TABLET PO PRN ×2 (10:18→20:09)
[2020-10-25] MEDS: NICOTINE 14 MG/24 HOUR PATCH TD PRN (13:01)
[2020-10-25 16:31] VITALS: BP 135/86
[2020-10-25] MEDS: ZOLPIDEM TARTRATE 10 MG TABLET PO PRN (20:09)
[2020-10-26 00:52] VITALS: BP 128/76
[2020-10-26 08:44] VITALS: BP 134/74
[2020-10-26] MEDS: DIVALPROEX SODIUM 500 MG DR TABLET PO SCH ×2 (08:56→16:48)
[2020-10-26] MEDS: BuPROPion HCL XL 150 MG ER TABLET PO SCH (08:57)
[2020-10-26] MEDS: LORazepam 2 MG TABLET PO PRN ×2 (08:57→18:07)
[2020-10-26 16:20] VITALS: BP 129/81
[2020-10-26] MEDS: QUEtiapine FUMARATE 200 MG TABLET PO SCH (20:37)
[2020-10-27 01:35] VITALS: BP 111/76
[2020-10-27 08:21] LABS: APPEARANCE,URINE CLEAR (CLEAR); BILIRUBIN,URINE NEGATIVE (NEGATIVE); GLUCOSE, URINE (UA) NEGATIVE (NEGATIVE); KETONES,URINE TRACE mg/dL (NEGATIVE); LEUKOCYTE ESTERASE ,URINE NEGATIVE (NEGATIVE); NITRATE,URINE NEGATIVE (NEGATIVE); OCCULT BLOOD,URINE NEGATIVE (NEGATIVE); PROTEIN,URINE NEGATIVE (NEGATIVE); UROBILINOGEN,URINE 0.2 mg/dL (<=1.0)
[2020-10-27 08:27] VITALS: BP 117/61
[2020-10-27 08:29] LABS: AMPHET/METH SCREEN,URINE NEGATIVE (NEGATIVE); BARBITURATE SCREEN, URINE NEGATIVE (NEGATIVE); BENZODIAZEPINES SCREEN,URINE NEGATIVE (NEGATIVE); CANNABINOID SCREEN,URINE NEGATIVE (NEGATIVE); COCAINE SCREEN,URINE NEGATIVE (NEGATIVE); METHADONE SCREEN, URINE NEGATIVE (NEGATIVE); OPIATE SCREEN,URINE NEGATIVE (NEGATIVE); PHENCYCLIDINE SCREEN,URINE NEGATIVE (NEGATIVE)
[2020-10-27] MEDS: DIVALPROEX SODIUM 500 MG DR TABLET PO SCH ×2 (09:24→16:05)
[2020-10-27] MEDS: BuPROPion HCL XL 150 MG ER TABLET PO SCH (09:24)
[2020-10-27] MEDS: LORazepam 2 MG TABLET PO PRN ×2 (16:05→23:51)
[2020-10-27 16:20] VITALS: BP 123/85
[2020-10-27] MEDS: QUEtiapine FUMARATE 200 MG TABLET PO SCH (20:42)
[2020-10-28 00:15] VITALS: BP 109/57
[2020-10-28 08:20] LABS: COVID AG,FIA SOURCE NASOPHARYNGEAL
[2020-10-28 08:23] VITALS: BP 121/64
[2020-10-28] MEDS: BuPROPion HCL XL 150 MG ER TABLET PO SCH (09:53)
[2020-10-28] MEDS: DIVALPROEX SODIUM 500 MG DR TABLET PO SCH ×2 (09:53→16:29)
[2020-10-28] MEDS: LORazepam 2 MG TABLET PO PRN ×3 (10:41→21:48)
[2020-10-28 16:29] VITALS: BP 119/70
[2020-10-28] MEDS: QUEtiapine FUMARATE 200 MG TABLET PO SCH (19:59)
[2020-10-28] MEDS: OLANZapine 5 MG TABLET PO PRN (21:49)
[2020-10-29 01:05] VITALS: BP 130/82
[2020-10-29 08:55] VITALS: BP 100/67
[2020-10-29] MEDS: BuPROPion HCL XL 150 MG ER TABLET PO SCH (09:31)
[2020-10-29] MEDS: DIVALPROEX SODIUM 500 MG DR TABLET PO SCH ×2 (09:31→16:53)
[2020-10-29] MEDS: LORazepam 2 MG TABLET PO PRN ×2 (15:02→20:12)
[2020-10-29 17:10] VITALS: BP 125/81
[2020-10-29] MEDS: NICOTINE 14 MG/24 HOUR PATCH TD PRN (19:14)
[2020-10-29] MEDS: QUEtiapine FUMARATE 200 MG TABLET PO SCH (20:08)
[2020-10-29] MEDS: OLANZapine 5 MG TABLET PO PRN (20:11)
[2020-10-30 06:23] VITALS: BP 118/81
[2020-10-30 08:26] VITALS: BP 104/63
[2020-10-30] MEDS: BuPROPion HCL XL 150 MG ER TABLET PO SCH (09:28)
[2020-10-30] MEDS: DIVALPROEX SODIUM 500 MG ER TABLET PO SCH ×2 (09:28→16:05)
[2020-10-30] MEDS: OLANZapine 5 MG TABLET PO PRN ×2 (09:29→20:38)
[2020-10-30] MEDS: LORazepam 2 MG TABLET PO PRN ×2 (16:05→20:06)
[2020-10-30 17:01] VITALS: BP 115/72
[2020-10-30 20:04] VITALS: BP 134/84
[2020-10-30] MEDS: QUEtiapine FUMARATE 200 MG TABLET PO SCH (20:38)
[2020-10-31 05:06] VITALS: BP 119/74
[2020-10-31 08:19] VITALS: BP 112/64
[2020-10-31] MEDS: LORazepam 2 MG TABLET PO PRN ×2 (08:46→20:58)
[2020-10-31] MEDS: BuPROPion HCL XL 150 MG ER TABLET PO SCH (08:46)
[2020-10-31] MEDS: OLANZapine 5 MG TABLET PO PRN ×2 (08:46→20:58)
[2020-10-31] MEDS: DIVALPROEX SODIUM 500 MG ER TABLET PO SCH ×2 (08:47→16:35)
[2020-10-31] MEDS: NICOTINE 14 MG/24 HOUR PATCH TD PRN (13:52)
[2020-10-31 17:18] VITALS: BP 107/65
[2020-10-31] MEDS: QUEtiapine FUMARATE 200 MG TABLET PO SCH (20:58)
[2020-11-01 06:24] VITALS: BP 115/69
[2020-11-01] MEDS: DIVALPROEX SODIUM 500 MG ER TABLET PO SCH (08:37)
[2020-11-01] MEDS: BuPROPion HCL XL 150 MG ER TABLET PO SCH (08:37)
[2020-11-01] MEDS ORDERED: DIVA-80 PO (11:00)
[2020-11-01] MEDS ORDERED: QUET200T PO (11:00)
[2020-11-01] MEDS ORDERED: BUPR-93 PO (11:01)
== END 2020-11-01 12:45 | disposition home or self-care (01) | DRG 750 ==
LOC: EMS 15:52 → B2S 18:13 → B3A 10-29 05:50
PROVIDERS: ADMIT Psychiatry & Neurology Psychiatry; ATTEND Psychiatry & Neurology Psychiatry
DX: F25.1 Schizoaffective disorder, depressive type (principal); R45.851 Suicidal ideations; Z20.822 Contact with and (suspected) exposure to COVID-19; F17.210 Nicotine dependence, cigarettes, uncomplicated; F31.9 Bipolar disorder, unspecified; D72.829 Elevated white blood cell count, unspecified; E44.0 Moderate protein-calorie malnutrition; F12.90 Cannabis use, unspecified, uncomplicated; R10.13 Epigastric pain; E11.9 Type 2 diabetes mellitus without complications; E66.01 Morbid (severe) obesity due to excess calories; E78.5 Hyperlipidemia, unspecified; J45.909 Unspecified asthma, uncomplicated; K21.9 Gastro-esophageal reflux disease without esophagitis; Z68.24 Body mass index [BMI] 24.0-24.9, adult; Z88.0 Allergy status to penicillin; Z91.013 Allergy to seafood; Z88.8 Allergy status to other drugs, medicaments and biological substances; Z91.14 Patient's other noncompliance with medication regimen
CPT/HCPCS: 80307; 87426; 99285; G0480; J2405

== ENCOUNTER 2020-11-10 20:29 | Inpatient (IN) | payer MEDICAID, OTHER ==
[~2020-11-10] VITALS: Ht 180.3 cm; Wt 93.5 kg
[~2020-11-10 20:29] MED LIST changes: +BUPR-93 PO; -DIVA-112 PO; +DIVA-80 PO; -PALI234D IM; +QUET200T PO; -RISP2TAB23 PO; -SERT100T12 PO
[2020-11-10 21:00] LABS: BASOPHILS % (AUTO) 0.4 % (0.0-2.0); EOSINOPHILS % (AUTO) 0.2 % (1.0-6.0); HEMATOCRIT 43.7 % (41-53); LYMPHOCYTES # (AUTO) 2.6 K/uL (1.0-4.8); LYMPHOCYTES % (AUTO) 22.3 % (22.0-44.0); MEAN CORPUSCULAR HEMOGLOBIN 28.5 pg (26.0-34.0); MEAN CORPUSCULAR HGB CONC 32.1 G/dL (31.0-37.0); MEAN CORPUSCULAR VOLUME 89 fL (80-100); MONOCYTES % (AUTO) 8.7 % (2.0-9.0); NEUTROPHILS # (AUTO) 8.1 K/uL (1.8-7.7); NEUTROPHILS % (AUTO) 68.4 % (40.0-70.0); PLATELET COUNT (AUTO) 338 K/uL (150-450); RED BLOOD CELL COUNT(AUTO) 4.92 MIL/uL (4.50-5.90); RED CELL DISTRIBUTION WIDTH 13.2 % (11.5-14.5)
[2020-11-10 21:15] LABS: AMPHET/METH SCREEN,URINE NEGATIVE (NEGATIVE); BARBITURATE SCREEN, URINE NEGATIVE (NEGATIVE); BENZODIAZEPINES SCREEN,URINE NEGATIVE (NEGATIVE); CANNABINOID SCREEN,URINE POSITIVE (NEGATIVE); COCAINE SCREEN,URINE NEGATIVE (NEGATIVE); METHADONE SCREEN, URINE NEGATIVE (NEGATIVE); OPIATE SCREEN,URINE NEGATIVE (NEGATIVE)
[2020-11-10 21:18] LABS: PHENCYCLIDINE SCREEN,URINE NEGATIVE (NEGATIVE)
[2020-11-10 21:25] LABS: COVID AG,FIA SOURCE NASOPHARYNGEAL
[2020-11-10 21:31] LABS: ANION GAP 17 mmol/L (8-16); CALCIUM, TOTAL 9.5 mg/dL (8.8-10.5); CARBON DIOXIDE 20 mmol/L (22-29); CHLORIDE 101 mmol/L (98-107); CREATININE 0.95 mg/dL (0.60-1.30); GLOMERULAR FILTR. RATE CALC > 60 mL/min (>60); GLUCOSE,RANDOM 77 mg/dL (70-110); POTASSIUM 3.3 mmol/L (3.5-5.1); SODIUM SERUM 138 mmol/L (136-145); UREA NITROGEN, BLOOD 11 mg/dL (7-18)
[2020-11-10 21:37] LABS: ALANINE AMINOTRANSFERASE 40 U/L (12-78); ALBUMIN 4.6 g/dL (3.4-5.0); ALKALINE PHOSPHATASE 91 U/L (46-116); ASPARTATE AMINOTRANSFERASE 20 U/L (15-37); BILIRUBIN,TOTAL 0.5 mg/dL (0.1-1.0); TOTAL PROTEIN, SERUM 8.4 g/dL (6.4-8.2); VALPROIC ACID < 3 mcg/mL (50-100)
[2020-11-11 01:21] VITALS: BP 113/73
[2020-11-11] MEDS: LORazepam 2 MG TABLET PO PRN ×2 (01:22→19:49)
[2020-11-11] MEDS: ZOLPIDEM TARTRATE 10 MG TABLET PO PRN ×2 (01:22→20:22)
[2020-11-11 02:43] VITALS: BP 113/73
[2020-11-11] MEDS ORDERED: INFLUENZA VIRUS VACCINE QVS 2020-21 (6MO+)/PF 60 MCG/0.5 ML SYRINGE IM. ONE (03:45)
[2020-11-11 08:21] VITALS: BP 127/71
[2020-11-11 08:26] LABS: CHOL/HDL RATIO 4.8 (4.2-7.3)
[2020-11-11] MEDS: DIVALPROEX SODIUM 500 MG DR TABLET PO SCH ×2 (10:21→17:44)
[2020-11-11] MEDS: OLANZapine 5 MG TABLET PO SCH ×2 (10:21→17:44)
[2020-11-11] MEDS: BuPROPion HCL XL 150 MG ER TABLET PO SCH (10:21)
[2020-11-11] MEDS ORDERED: POTASSIUM CHLORIDE 20 MEQ ER TABLET PO ONE (13:15)
[2020-11-11 16:25] VITALS: BP 113/62
[2020-11-12 00:17] VITALS: BP 114/64
[2020-11-12] MEDS: OLANZapine 5 MG TABLET PO SCH ×2 (08:37→17:13)
[2020-11-12] MEDS: BuPROPion HCL XL 150 MG ER TABLET PO SCH (08:37)
[2020-11-12] MEDS: DIVALPROEX SODIUM 500 MG DR TABLET PO SCH ×2 (08:37→17:13)
[2020-11-12 11:07] VITALS: BP 99/58
[2020-11-12 16:29] VITALS: BP 111/78
[2020-11-12] MEDS: LORazepam 2 MG TABLET PO PRN (21:09)
[2020-11-12] MEDS: ZOLPIDEM TARTRATE 10 MG TABLET PO PRN (21:09)
[2020-11-13 06:10] VITALS: BP 98/62
[2020-11-13 08:10] VITALS: BP 134/83
[2020-11-13] MEDS: OLANZapine 5 MG TABLET PO SCH ×2 (08:23→16:15)
[2020-11-13] MEDS: BuPROPion HCL XL 150 MG ER TABLET PO SCH (08:23)
[2020-11-13] MEDS: LORazepam 2 MG TABLET PO PRN ×2 (08:23→16:15)
[2020-11-13] MEDS: DIVALPROEX SODIUM 500 MG DR TABLET PO SCH ×2 (08:23→16:15)
[2020-11-13] MEDS: OLANZapine 5 MG RAPDIS TABLET PO PRN ×2 (10:46→20:32)
[2020-11-13 16:08] VITALS: BP 107/79
[2020-11-13] MEDS: ZOLPIDEM TARTRATE 10 MG TABLET PO PRN (20:32)
[2020-11-14 03:10] VITALS: BP 112/68
[2020-11-14] MEDS: LORazepam 2 MG TABLET PO PRN ×3 (08:22→21:51)
[2020-11-14] MEDS: BuPROPion HCL XL 150 MG ER TABLET PO SCH (08:22)
[2020-11-14] MEDS: OLANZapine 5 MG TABLET PO SCH ×2 (08:22→16:07)
[2020-11-14] MEDS: DIVALPROEX SODIUM 500 MG DR TABLET PO SCH ×2 (08:23→16:07)
[2020-11-14 08:56] VITALS: BP 130/86
[2020-11-14 16:01] VITALS: BP 101/68
[2020-11-14] MEDS: OLANZapine 5 MG RAPDIS TABLET PO PRN (21:34)
[2020-11-14] MEDS: ZOLPIDEM TARTRATE 10 MG TABLET PO PRN (21:35)
[2020-11-15 04:34] VITALS: BP 137/88
[2020-11-15 08:29] VITALS: BP 104/60
[2020-11-15] MEDS: DIVALPROEX SODIUM 500 MG DR TABLET PO SCH ×2 (08:52→17:31)
[2020-11-15] MEDS: OLANZapine 5 MG TABLET PO SCH ×2 (08:52→17:31)
[2020-11-15] MEDS: LORazepam 2 MG TABLET PO PRN ×2 (08:53→16:50)
[2020-11-15] MEDS: BuPROPion HCL XL 150 MG ER TABLET PO SCH (08:53)
[2020-11-15 16:18] VITALS: BP 119/81
[2020-11-15] MEDS: NICOTINE 14 MG/24 HOUR PATCH TD SCH (18:30)
[2020-11-15] MEDS: ZOLPIDEM TARTRATE 10 MG TABLET PO PRN (20:25)
[2020-11-16 04:03] VITALS: BP 121/80
[2020-11-16 08:35] VITALS: BP 103/65
[2020-11-16] MEDS: DIVALPROEX SODIUM 500 MG DR TABLET PO SCH ×2 (09:02→16:29)
[2020-11-16] MEDS: BuPROPion HCL XL 150 MG ER TABLET PO SCH (09:02)
[2020-11-16] MEDS: OLANZapine 5 MG RAPDIS TABLET PO PRN (09:02)
[2020-11-16] MEDS: NICOTINE 14 MG/24 HOUR PATCH TD SCH (09:03)
[2020-11-16] MEDS: LORazepam 2 MG TABLET PO PRN ×3 (09:03→18:53)
[2020-11-16] MEDS: OLANZapine 5 MG TABLET PO SCH ×2 (09:35→16:28)
[2020-11-16 16:13] VITALS: BP 121/78
[2020-11-16] MEDS: ZOLPIDEM TARTRATE 10 MG TABLET PO PRN (20:42)
[2020-11-17 06:41] VITALS: BP 104/63
[2020-11-17 09:09] VITALS: BP 101/60
[2020-11-17] MEDS: OLANZapine 5 MG TABLET PO SCH ×2 (09:41→17:32)
[2020-11-17] MEDS: DIVALPROEX SODIUM 500 MG DR TABLET PO SCH ×2 (09:41→17:50)
[2020-11-17] MEDS: BuPROPion HCL XL 150 MG ER TABLET PO SCH (09:41)
[2020-11-17] MEDS: NICOTINE 14 MG/24 HOUR PATCH TD SCH (09:41)
[2020-11-17] MEDS: LORazepam 2 MG TABLET PO PRN ×2 (10:50→17:32)
[2020-11-17 16:18] VITALS: BP 126/80
[2020-11-17] MEDS: ZOLPIDEM TARTRATE 10 MG TABLET PO PRN (20:09)
[2020-11-17] MEDS: OLANZapine 5 MG RAPDIS TABLET PO PRN (20:15)
[2020-11-18 00:51] VITALS: BP 121/68
[2020-11-18 08:16] VITALS: BP 100/60
[2020-11-18] MEDS: DIVALPROEX SODIUM 500 MG DR TABLET PO SCH (08:49)
[2020-11-18] MEDS: OLANZapine 5 MG TABLET PO SCH (08:50)
[2020-11-18] MEDS: BuPROPion HCL XL 150 MG ER TABLET PO SCH (08:50)
[2020-11-18] MEDS: LORazepam 2 MG TABLET PO PRN (08:50)
[2020-11-18] MEDS ORDERED: OLAN5TAB27 PO (11:26)
[2020-11-18] MEDS: NICOTINE 14 MG/24 HOUR PATCH TD SCH (12:20)
== END 2020-11-18 16:00 | disposition home or self-care (01) | DRG 750 ==
LOC: EMS 20:29 → B3A 22:00
PROVIDERS: ADMIT Psychiatry & Neurology Psychiatry; ATTEND Psychiatry & Neurology Psychiatry
DX: F25.1 Schizoaffective disorder, depressive type (principal); R45.851 Suicidal ideations; D72.829 Elevated white blood cell count, unspecified; E87.6 Hypokalemia; F17.210 Nicotine dependence, cigarettes, uncomplicated; F41.9 Anxiety disorder, unspecified; Z91.5 Personal history of self-harm; Z20.822 Contact with and (suspected) exposure to COVID-19; Z23 Encounter for immunization
CPT/HCPCS: 84132; 87081; 87426; 99285; G0480